=== PATIENT | female | born 1985 | race Caucasian/White ===

== ENCOUNTER 2017-03-30 11:18 | Inpatient (IN) | payer BC ==
[2017-03-30] MEDS ORDERED: Zolpidem 5 MG Tab PO PRN (11:44)
[2017-03-30] MEDS ORDERED: Sodium Chloride 0.9% 10 ML Syringe FLUSH PRN (11:44)
[2017-03-30] MEDS ORDERED: Lactated Ringers 1,000 ML IV SCH (11:45)
[2017-03-30] MEDS ORDERED: Ondansetron 4 MG/2 ML SDV IVPUSH PRN (11:46)
[2017-03-30] MEDS ORDERED: Oxytocin/Lactated Ringers 10 UNIT/1,000 ML BAG IV SCH (12:00)
[2017-03-30] MEDS: Misoprostol 25 MCG (1/4 of 100 MCG) Tab VAG PRN ×3 (12:18→20:15)
--- NOTE | 2017-03-30 12:37 | PCM.LDHP ---
L&D History of Present Illness - General Date of Service: 03/30/17 Admit Problem/Dx: Admission Diagnosis/Problem Admission Diagnosis/Problem Source of Information: Patient History Limitations: Reports: No Limitations - History of Present Illness Introduction:: Patient is a 31-year-old at 39-0/7 weeks gestation who presents for induction of labor today due to intermittently elevated blood pressures. ' s is notable for a history of bipolar disorder, anxiety, and von Willebrand's disease - type I. Patient's course has been relatively uncomplicated. In the last few weeks has had upper limit of normal blood pressures at appointments. This last weekend had a few mild range blood pressures on L&D evaluation, but normal testing. Today she presented to clinic still having complaints of intermittent headaches, and another upper limit of normal blood pressure. He was ultimately felt best to move forward with induction. She is otherwise getting good movement. Having some intermittent contractions, but nothing patterned. - Related Data Allergies/Adverse Reactions: Allergies Allergy/AdvReac Type Severity Reaction Status Date / Time amoxicillin [Amoxicillin] Allergy Itching Verified 03/22/17 11:55 aspirin AdvReac Bleeding Verified 03/22/17 11:55 Home Medications: Home Meds LORazepam [Ativan] 0.5 mg PO DAILY PRN 01/10/14 [History] Desmopressin [Stimate 0.15% Nasal [place]] 1 spray NASBOTH ASDIRECTED PRN [History] ARIPiprazole [Abilify] 5 mg PO DAILY 01/18/16 [History] Citalopram Hydrobromide [Celexa] 20 mg PO DAILY 01/18/16 [History] OXcarbazepine [Trileptal] 300 mg PO DAILY 01/18/16 [History] Past Medical History HEENT History: Reports: Impaired Vision Other HEENT History: wears contacts Gastrointestinal History: Reports: GERD, Hemorrhoids [employer] History: Reports: : 1 Para: 0 LMP (Approximate): Musculoskeletal History: Reports: Back Pain, Chronic, Other (See Below) Other Musculoskeletal History: herniated discs Neurological History: Reports: Migraines Psychiatric History: Reports: Anxiety, Bipolar, Depression Hematologic History: Reports: Other (See Below) Other Hematologic History: Von Willebrand disease - Past Surgical History HEENT Surgical History: Reports: Tonsillectomy, Other (See Below) Other HEENT Surgeries/Procedures: tooth extraction GI Surgical History: Reports: Appendectomy, Cholecystectomy, Other (See Below) ( hemorrhoidectomy) Female Surgical History: Reports: Cystectomy, D&C, LEEP Social & Family History - Family History Family Medical History: Noncontributory - Tobacco Use Smoking Status *Q: Never Smoker Second Hand Smoke Exposure: No - Caffeine Use Caffeine Use: Reports: Coffee, Soda - Alcohol Use Alcohol Use History: No Days Per Week of Alcohol Use: 0 - Recreational Drug Use Recreational Drug Use: No - Living Situation & Occupation Living situation: Reports: with Significant Other Occupation: Employed H&P Review of Systems - Review of Systems: Review Of Systems: See Below General: Reports: No Symptoms Pulmonary: Reports: No Symptoms Cardiovascular: Reports: No Symptoms Gastrointestinal: Reports: No Symptoms Genitourinary: Reports: No Symptoms Musculoskeletal: Reports: Back Pain Psychiatric: Reports: Anxiety Neurological: Reports: Headache L&D Exam - Exam Exam: See Below - Vital Signs Vital Signs: Last Vital Signs Temp 36.7 C 03/30/17 11:34 Pulse 84 03/30/17 11:34 Resp 18 03/30/17 11:34 BP 122/66 03/30/17 11:34 Pulse Ox Weight: 83.642 kg - OB Specific Contraction Intensity: Irritability Movement: Active Heart Tones: Present Heart Tones per Min: 135 Heart Rate (FHR) Variability: Moderate (6-25 bmp) Presentation: Vertex - Domínguez Score Domínguez Score Cervix Position: Midposition Domínguez Score Consistency: Medium Domínguez Score Effacement: 51-70% Domínguez Score Dilation: 1-2 cm Domínguez Score 's Station: -2 Domínguez Score Total: 6 - Exam General: Alert, Oriented, Cooperative Lungs: Clear to Auscultation, Normal Respiratory Effort Cardiovascular: Regular Rate, Regular Rhythm GI/Abdominal Exam: Soft, Non-Tender Genitourinary: Normal external exam Extremities: Normal Inspection Skin: Warm, Dry, Intact - Patient Data Lab Results Last 24 hrs: Laboratory Results - last 24 hr 03/30/17 Range/Units 12:16 WBC 9.16 (3.98-10.04) K/mm3 RBC 3.40 L (3.98-5.22) M/mm3 Hgb 10.7 L (11.2-15.7) gm/L Hct 31.6 L (34.1-44.9) % MCV 92.9 (79.4-94.8) fl MCH 31.5 (25.6-32.2) pg MCHC 33.9 (32.2-35.5) g/dl RDW Std Deviation 41.6 (36.4-46.3) fL Plt Count 191 (182-369) K/mm3 MPV 12.4 H (9.4-12.3) fl Result Diagrams: 03/30/17 12:16 - Problem List (1) 39 weeks gestation of SNOMED Code(s): 31775219 ICD Code: Z3A.39 - 39 WEEKS GESTATION OF Status: Acute Current Visit: Yes (2) Gestational hypertension SNOMED Code(s): 15580322 ICD Code: O13.9 - GESTATIONAL HTN W/O SIGNIFICANT PROTEINURIA, UNSP TRIMESTER Status: Acute Current Visit: Yes Qualifiers: Trimester: third trimester Qualified Code(s): O13.3 - Gestational [ -induced] hypertension without significant proteinuria, third trimester (3) Von Willebrands disease SNOMED Code(s): 175236782 ICD Code: D68.0 - VON WILLEBRAND'S DISEASE Status: Acute Current Visit: No Problem List Initiated/Reviewed/Updated: Yes Orders Last 24hrs: Active Orders 24 hr Category Date Time Status Communication Order [RC] ASDIRECTED Care 03/30/17 11:44 Active Communication Order [RC] ASDIRECTED Care 03/30/17 11:44 Active Communication Order [RC] ASDIRECTED Care 03/30/17 11:46 Active Heart Tones [RC] ASDIRECTED Care 03/30/17 11:46 Active Monitoring [RC] INTERMITTENT Care 03/30/17 11:44 Active Notify Provider [RC] ASDIRECTED Care 03/30/17 11:44 Active Notify Provider [RC] PRN Care 03/30/17 11:46 Active Peripheral IV Care [RC] . DIRECTED Care 03/30/17 11:44 Active Vaginal Exam [RC] ASDIRECTED Care 03/30/17 11:44 Active Vital Signs [RC] ASDIRECTED Care 03/30/17 11:44 Active Regular Diet [DIET] Diet 03/30/17 Lunch Active ALANINE AMINOTRANSFERASE,ALT [CHEM] Routine Lab 03/30/17 11:46 Ordered ASPARTATE AMNIOTRANSFERASE,AST [CHEM] Routine Lab 03/30/17 11:46 Ordered CREATININE W/GFR [CHEM] Routine Lab 03/30/17 11:46 Ordered FACTOR 8 [REF] Routine Lab 03/30/17 11:46 Ordered TYPE AND SCREEN [BBK] Routine Lab 03/30/17 11:46 Ordered UA W/O MICROSCOPIC [URIN] Routine Lab 03/30/17 11:44 Uncollected VON WILLEBRAND FACTOR ACTIVITY Routine Lab 03/30/17 11:46 Ordered VON WILLEBRAND PANEL [REF] Routine Lab 03/30/17 11:46 Ordered Lactated Ringers [Ringers, Lactated] 1,000 ml Med 03/30/17 11:45 Active IV ASDIRECTED Misoprostol [Cytotec] Med 03/30/17 11:44 Active 25 mcg VAG Q4H PRN Nalbuphine [Nubain] Med 03/30/17 11:46 Active 10 mg IVPUSH Q2H PRN Ondansetron [Zofran] Med 03/30/17 11:46 Active 4 mg IVPUSH Q4H PRN Oxytocin/Lactated Ringers [Pitocin in LR 10 Units/1,000 Med 03/30/17 12:00 Active ML] 10 unit in 1,000 ml IV .CONTINUOUS Sodium Chloride 0.9% [Saline Flush] Med 03/30/17 11:44 Active 10 ml FLUSH ASDIRECTED PRN Zolpidem [Ambien] Med 03/30/17 11:44 Active 5 mg PO BEDTIME PRN Electronic Heart Tones Ext w TOCO [WOMSER] Oth 03/30/17 11:46 Ordered Routine Electronic Heart Tones Internal [WOMSER] Per Unit Oth 03/30/17 11:46 Ordered Routine Peripheral IV Insertion Adult [OM.PC] Routine Oth 03/30/17 11:44 Ordered Resuscitation Status Routine Resus Stat 03/30/17 11:46 Ordered Medication Orders Lactated Ringer's (Ringers, Lactated) 1,000 mls @ 40 mls/hr IV ASDIRECTED SHERI Oxytocin/Lactated Ringer's (Pitocin In Lr 10 Units/1,000 Ml) 10 unit in 1,000 mls @ 500 mls/hr IV .CONTINUOUS SHERI Misoprostol (Cytotec) 25 mcg VAG Q4H PRN PRN Reason: cervical ripening Stop: 03/30/17 19:45 Last Admin: 03/30/17 12:18 Dose: 25 mcg Nalbuphine HCl (Nubain) 10 mg IVPUSH Q2H PRN PRN Reason: Pain (moderate 4-6) Ondansetron HCl (Zofran) 4 mg IVPUSH Q4H PRN PRN Reason: Nausea/Vomiting Sodium Chloride (Saline Flush) 10 ml FLUSH ASDIRECTED PRN PRN Reason: Keep Vein Open Zolpidem Tartrate (Ambien) 5 mg PO BEDTIME PRN PRN Reason: Insomnia Assessment/Plan Comment:: 31-year-old at 39-0/7 weeks gestation who presents today for induction of labor given concerns of gestational hypertension * CBC, type and screen, AST, ALT, creatinine, UA for initial evaluation * We'll also assess von Willebrand factor activity and factor VIII level on admission * Plan for Cytotec with eventual Pitocin and AROM as indicated * Will monitor BP's closely * GBS negative, no need for antibiotics * Have discussed again with anesthesia and they feel that she is a candidate for regional anesthesia given normal von Willebrand factor activity and factor VIII levels drawn 03/04 at [facility] * Anticipate
[2017-03-30] MEDS ORDERED: Ondansetron 4 MG/2 ML SDV ONE (15:35)
[2017-03-30] MEDS ORDERED: Lactated Ringers 0 ML ONE (15:35)
[2017-03-30] MEDS ORDERED: ceFAZolin 1 GM Vial ONE (15:35)
[2017-03-30] MEDS ORDERED: Oxytocin 10 Units/1 ML SDV ONE (15:35)
[2017-03-30] MEDS ORDERED: Ketorolac 30 MG/ML SDV ONE (15:35)
[2017-03-30] MEDS ORDERED: Morphine PF 10 MG/10 ML SDV ONE (15:35)
[2017-03-30] MEDS ORDERED: Phenylephrine 1% 10 MG/ML SDV ONE (15:35)
[2017-03-30] MEDS: Acetaminophen 325 MG Tab PO PRN (17:18)
--- NOTE | 2017-03-30 20:32 | PCM.PNLD ---
Labor Progress Note - VS & Meds Vital Signs: Last Vital Signs Temp 36.7 C 03/30/17 11:34 Pulse 84 03/30/17 11:34 Resp 18 03/30/17 11:34 BP 122/66 03/30/17 11:34 Pulse Ox Active Medications: Current Medications Acetaminophen (Tylenol) 650 mg PO Q6H PRN PRN Reason: headahce Last Admin: 03/30/17 17:18 Dose: 650 mg Lactated Ringer's (Ringers, Lactated) 1,000 mls @ 40 mls/hr IV ASDIRECTED SHERI Last Infusion: 03/30/17 20:10 Dose: 0 mls/hr Oxytocin/Lactated Ringer's (Pitocin In Lr 10 Units/1,000 Ml) 10 unit in 1,000 mls @ 500 mls/hr IV .CONTINUOUS HSERI Nalbuphine HCl (Nubain) 10 mg IVPUSH Q2H PRN PRN Reason: Pain (moderate 4-6) Ondansetron HCl (Zofran) 4 mg IVPUSH Q4H PRN PRN Reason: Nausea/Vomiting Sodium Chloride (Saline Flush) 10 ml FLUSH ASDIRECTED PRN PRN Reason: Keep Vein Open Zolpidem Tartrate (Ambien) 5 mg PO BEDTIME PRN PRN Reason: Insomnia Discontinued Medications Cefazolin Sodium (Ancef) Confirm Administered Dose 2 gm .ROUTE .STK-MED ONE Stop: 03/30/17 15:36 Lactated Ringer's (Ringers, Lactated) Confirm Administered Dose 2,000 mls @ as directed .ROUTE .STK-MED ONE Stop: 03/30/17 15:36 Ketorolac Tromethamine (Toradol) Confirm Administered Dose 30 mg .ROUTE .STK- MED ONE Stop: 03/30/17 15:36 Misoprostol (Cytotec) 25 mcg VAG Q4H PRN PRN Reason: cervical ripening Stop: 03/30/17 19:45 Last Admin: 03/30/17 20:15 Dose: 25 mcg Morphine Sulfate (Duramorph Pf) Confirm Administered Dose 10 mg .ROUTE .STK-MED ONE Stop: 03/30/17 15:36 Ondansetron HCl (Zofran) Confirm Administered Dose 4 mg .ROUTE .STK-MED ONE Stop: 03/30/17 15:36 Oxytocin (Pitocin) Confirm Administered Dose 10 unit .ROUTE .STK-MED ONE Stop: 03/30/17 15:36 Phenylephrine HCl (Tito-Synephrine) Confirm Administered Dose 10 mg .ROUTE .STK- MED ONE Stop: 03/30/17 15:36 - Uterine Contractions Uterine Monitoring Mode: External [place] Contraction Intensity: Mild to Moderate - Monitoring Monitor Mode: External Ultrasound Heart Rate (FHR) Baseline: 150 Heart Rate (FHR) Variability: Moderate (6-25 bmp) Accelerations: Present, 15x15 Decelerations: None Strip Review: Category I - Vaginal Exam Dilation (cm): 2 Effacement (Percent): 80 Station: -2 Cervical Position: Midposition - Labor Progress (Free Text) Labor Progress: Patient s/p 2 doses of cytotec. Feeling more uncomfortable. Have placed 3rd cytotec with fu bulb. After completion of this dose will move on to pitocin. Discussed methods of pain control. Will start with nubain and then move on to epidural as needed. Will watch fluid intake closely if epidural desired.
[2017-03-30] MEDS: Nalbuphine 20 MG/1 ML Amp IVPUSH PRN (22:21)
[2017-03-31] MEDS ORDERED: Oxytocin/Lactated Ringers 10 UNIT/1,000 ML BAG IV SCH (02:30)
[2017-03-31] MEDS: Acetaminophen 325 MG Tab PO PRN ×2 (03:13→19:04)
[2017-03-31] MEDS ORDERED: ePHEDrine 50 MG/ML SDV IVPUSH PRN (04:38)
[2017-03-31] MEDS ORDERED: fentaNYL 100 MCG/2 ML SDV EPIDUR PRN (04:38)
[2017-03-31] MEDS ORDERED: Ondansetron 4 MG/2 ML SDV IVPUSH PRN (04:38)
[2017-03-31] MEDS ORDERED: Bupivacaine/fentaNYL/NS 100 ML Bag EPIDUR SCH (04:45)
--- NOTE | 2017-03-31 05:46 | PCM.PREANE ---
Preanesthetic Assessment - Anesthesia/Transfusion/Family Hx Anesthesia History: Prior Anesthesia Without Reaction Family History of Anesthesia Reaction: No Transfusion History: No Prior Transfusion(s) Intubation History: Unknown - Review of Systems General: No Symptoms Pulmonary: No Symptoms Cardiovascular: Lightheadedness (with a panic attack) Gastrointestinal: No Symptoms (GERD) Neurological: Headache Other: Reports: None (Bipolar afffective disorder noted.), Easy Bleeding ( History of Von Willebrand disease type 1), Easy Bruising, Depression, Anxiety - Physical Assessment NPO Status Date: 03/30/17 NPO Status Time: 23:30 Pulse: 84 O2 Sat by Pulse Oximetry: 99 Respiratory Rate: 18 Blood Pressure: 122/66 Temperature: 36.7 C Vital Signs: Last Vital Signs Temp 36.7 C 03/30/17 11:34 Pulse 84 03/30/17 11:34 Resp 18 03/30/17 11:34 BP 122/66 03/30/17 11:34 Pulse Ox Height: 1.65 m Weight: 83.642 kg ASA Class: 2 Mental Status: Alert & Oriented x3 Airway Class: Mallampati = 2 Dentition: Reports: Normal Dentition, Caries Thyro-Mental Finger Breadths: 3 Mouth Opening Finger Breadths: 3 ROM/Head Extension: Full Lungs: Clear to Auscultation, Normal Respiratory Effort Cardiovascular: Regular Rate, Regular Rhythm, No Murmurs - Lab Values: Laboratory Last Values WBC 9.16 K/mm3 (3.98-10.04) 03/30/17 12:16 RBC 3.40 M/mm3 (3.98-5.22) L 03/30/17 12:16 Hgb 10.7 gm/L (11.2-15.7) L 03/30/17 12:16 Hct 31.6 % (34.1-44.9) L 03/30/17 12:16 MCV 92.9 fl (79.4-94.8) 03/30/17 12:16 MCH 31.5 pg (25.6-32.2) 03/30/17 12:16 MCHC 33.9 g/dl (32.2-35.5) 03/30/17 12:16 RDW Std Deviation 41.6 fL (36.4-46.3) 03/30/17 12:16 Plt Count 191 K/mm3 (182-369) 03/30/17 12:16 MPV 12.4 fl (9.4-12.3) H 03/30/17 12:16 Sodium 137 mEq/L (136-145) 03/30/17 12:16 Potassium 3.7 mEq/L (3.5-5.1) 03/30/17 12:16 Chloride 105 mEq/L (98-107) 03/30/17 12:16 Carbon Dioxide 21 mEq/L (21-32) 03/30/17 12:16 Anion Gap 14.7 (5-15) 03/30/17 12:16 Creatinine 0.9 mg/dL (0.55-1.02) 03/30/17 12:16 Est Cr Clr Drug Dosing 82.25 mL/min 03/30/17 12:16 Estimated GFR (MDRD) > 60 mL/min (>60) 03/30/17 12:16 AST 23 U/L (15-37) 03/30/17 12:16 ALT 19 U/L (14-59) 03/30/17 12:16 Urine Color Yellow (Yellow) 03/30/17 13:47 Urine Appearance Slt cloudy (Clear) H 03/30/17 13:47 Urine pH 7.0 (5.0-8.0) 03/30/17 13:47 Ur Specific [place] 1.020 (1.005-1.030) 03/30/17 13:47 Urine Protein Negative (Negative) 03/30/17 13:47 Urine Glucose (UA) Negative (Negative) 03/30/17 13:47 Urine Ketones Negative (Negative) 03/30/17 13:47 Urine Occult Blood Negative (Negative) 03/30/17 13:47 Urine Nitrite Negative (Negative) 03/30/17 13:47 Urine Bilirubin Negative (Negative) 03/30/17 13:47 Urine Urobilinogen 0.2 (0.2-1.0) 03/30/17 13:47 Ur Leukocyte Esterase Negative (Negative) 03/30/17 13:47 Blood Type O POSITIVE 03/30/17 12:10 Gel Antibody Screen Negative 03/30/17 12:10 Above lab values reviewed and noted. 03/04/2017: VWB antigen = 89 - Allergies Allergies/Adverse Reactions: Allergies Allergy/AdvReac Type Severity Reaction Status Date / Time amoxicillin [Amoxicillin] Allergy Itching Verified 03/30/17 14:26 aspirin AdvReac Bleeding Verified 03/30/17 14:26 - Anesthesia Plan Pre-Op Medication Ordered: None - Acknowledgements Anesthesia Type Planned: Epidural Pt an Appropriate Candidate for the Planned Anesthesia: Yes Alternatives and Risks of Anesthesia Discussed w Pt/Guardian: Yes Pt/Guardian Understands and Agrees with Anesthesia Plan: Yes PreAnesthesia Questionnaire HEENT History: Reports: Impaired Vision Other HEENT History: wears contacts Cardiovascular History: Reports: Other (See Below) Gastrointestinal History: Reports: GERD, Hemorrhoids PRIMARY CARE NURSE History: Reports: Other OB/BYN History: cone biopsy with LEEP Musculoskeletal History: Reports: Back Pain, Chronic, Other (See Below) Other Musculoskeletal History: herniated discs Neurological History: Reports: Migraines Psychiatric History: Reports: Anxiety, Bipolar, Depression Hematologic History: Reports: Other (See Below) Other Hematologic History: Von Willebrand disease - Infectious Disease History Infectious Disease History: Reports: Chicken Pox - Past Surgical History HEENT Surgical History: Reports: Tonsillectomy, Other (See Below) Other HEENT Surgeries/Procedures: tooth extraction GI Surgical History: Reports: Appendectomy, Cholecystectomy, Other (See Below) ( hemorrhoidectomy) Female Surgical History: Reports: Cystectomy, D&C, LEEP - SUBSTANCE USE Smoking Status *Q: Never Smoker Second Hand Smoke Exposure: No Days Per Week of Alcohol Use: 0 Recreational Drug Use History: No - HOME MEDS Home Medications: Home Meds Desmopressin [Stimate 0.15% Nasal [place]] 1 spray NASBOTH ASDIRECTED PRN [History] Citalopram Hydrobromide [Celexa] 20 mg PO DAILY 01/18/16 [History] Calcium Carbonate [Tums] 500 mg PO Q2HR 03/30/17 [History] Cyclobenzaprine [Flexeril] 5 mg PO DAILY 03/30/17 [History] - CURRENT (IN HOUSE) MEDS Current Meds: Current Medications Acetaminophen (Tylenol) 650 mg PO Q6H PRN PRN Reason: headahce Last Admin: 03/31/17 03:13 Dose: 650 mg Ephedrine Sulfate (Ephedrine Sulfate) 5 mg IVPUSH ASDIRECTED PRN PRN Reason: Hypotension Fentanyl (Sublimaze) 100 mcg EPIDUR Q3H PRN PRN Reason: Pain Fentanyl/Bupivacaine HCl (Fentanyl/Bupivacaine/Ns 2 Mcg-0.125% 100 Ml) 100 ml EPIDUR ASDIRECTED SHERI Lactated Ringer's (Ringers, Lactated) 1,000 mls @ 40 mls/hr IV ASDIRECTED SHERI Last Infusion: 03/31/17 02:41 Dose: 5 mls/hr Oxytocin/Lactated Ringer's (Pitocin In Lr 10 Units/1,000 Ml) 10 unit in 1,000 mls @ 500 mls/hr IV .CONTINUOUS SHERI Oxytocin/Lactated Ringer's (Pitocin In Lr 10 Units/1,000 Ml) 10 unit in 1,000 mls @ 12 mls/hr IV TITRATE SHERI; 2 MUNITS/MIN PRN Reason: Protocol Last Titration: 03/31/17 05:33 Dose: 6 munits/min, 36 mls/hr Nalbuphine HCl (Nubain) 10 mg IVPUSH Q2H PRN PRN Reason: Pain (moderate 4-6) Last Admin: 03/30/17 22:21 Dose: 10 mg Ondansetron HCl (Zofran) 4 mg IVPUSH Q4H PRN PRN Reason: Nausea/Vomiting Ondansetron HCl (Zofran) 4 mg IVPUSH ONETIME PRN PRN Reason: Nausea/Vomiting Sodium Chloride (Saline Flush) 10 ml FLUSH ASDIRECTED PRN PRN Reason: Keep Vein Open Zolpidem Tartrate (Ambien) 5 mg PO BEDTIME PRN PRN Reason: Insomnia Discontinued Medications Cefazolin Sodium (Ancef) Confirm Administered Dose 2 gm .ROUTE .STK-MED ONE Stop: 03/30/17 15:36 Lactated Ringer's (Ringers, Lactated) Confirm Administered Dose 2,000 mls @ as directed .ROUTE .STK-MED ONE Stop: 03/30/17 15:36 Ketorolac Tromethamine (Toradol) Confirm Administered Dose 30 mg .ROUTE .STK- MED ONE Stop: 03/30/17 15:36 Misoprostol (Cytotec) 25 mcg VAG Q4H PRN PRN Reason: cervical ripening Stop: 03/30/17 19:45 Last Admin: 03/30/17 20:15 Dose: 25 mcg Morphine Sulfate (Duramorph Pf) Confirm Administered Dose 10 mg .ROUTE .STK-MED ONE Stop: 03/30/17 15:36 Ondansetron HCl (Zofran) Confirm Administered Dose 4 mg .ROUTE .STK-MED ONE Stop: 03/30/17 15:36 Oxytocin (Pitocin) Confirm Administered Dose 10 unit .ROUTE .STK-MED ONE Stop: 03/30/17 15:36 Phenylephrine HCl (Tito-Synephrine) Confirm Administered Dose 10 mg .ROUTE .STK- MED ONE Stop: 03/30/17 15:36
--- NOTE | 2017-03-31 07:19 | PCM.PNLD ---
Labor Progress Note - VS & Meds Vital Signs: Last Vital Signs Temp 36.7 C 03/31/17 06:05 Pulse 84 03/31/17 06:05 Resp 18 03/31/17 06:05 BP 122/66 03/31/17 06:05 Pulse Ox 99 03/31/17 06:05 Active Medications: Current Medications Acetaminophen (Tylenol) 650 mg PO Q6H PRN PRN Reason: headahce Last Admin: 03/31/17 03:13 Dose: 650 mg Ephedrine Sulfate (Ephedrine Sulfate) 5 mg IVPUSH ASDIRECTED PRN PRN Reason: Hypotension Fentanyl (Sublimaze) 100 mcg EPIDUR Q3H PRN PRN Reason: Pain Fentanyl/Bupivacaine HCl (Fentanyl/Bupivacaine/Ns 2 Mcg-0.125% 100 Ml) 100 ml EPIDUR ASDIRECTED SHERI Lactated Ringer's (Ringers, Lactated) 1,000 mls @ 40 mls/hr IV ASDIRECTED SHERI Last Infusion: 03/31/17 02:41 Dose: 5 mls/hr Oxytocin/Lactated Ringer's (Pitocin In Lr 10 Units/1,000 Ml) 10 unit in 1,000 mls @ 500 mls/hr IV .CONTINUOUS SHERI Oxytocin/Lactated Ringer's (Pitocin In Lr 10 Units/1,000 Ml) 10 unit in 1,000 mls @ 12 mls/hr IV TITRATE SHERI; 2 MUNITS/MIN PRN Reason: Protocol Last Titration: 03/31/17 06:20 Dose: 7 munits/min, 42 mls/hr Nalbuphine HCl (Nubain) 10 mg IVPUSH Q2H PRN PRN Reason: Pain (moderate 4-6) Last Admin: 03/30/17 22:21 Dose: 10 mg Ondansetron HCl (Zofran) 4 mg IVPUSH Q4H PRN PRN Reason: Nausea/Vomiting Ondansetron HCl (Zofran) 4 mg IVPUSH ONETIME PRN PRN Reason: Nausea/Vomiting Sodium Chloride (Saline Flush) 10 ml FLUSH ASDIRECTED PRN PRN Reason: Keep Vein Open Zolpidem Tartrate (Ambien) 5 mg PO BEDTIME PRN PRN Reason: Insomnia Discontinued Medications Cefazolin Sodium (Ancef) Confirm Administered Dose 2 gm .ROUTE .STK-MED ONE Stop: 03/30/17 15:36 Lactated Ringer's (Ringers, Lactated) Confirm Administered Dose 2,000 mls @ as directed .ROUTE .STK-MED ONE Stop: 03/30/17 15:36 Ketorolac Tromethamine (Toradol) Confirm Administered Dose 30 mg .ROUTE .STK- MED ONE Stop: 03/30/17 15:36 Misoprostol (Cytotec) 25 mcg VAG Q4H PRN PRN Reason: cervical ripening Stop: 03/30/17 19:45 Last Admin: 03/30/17 20:15 Dose: 25 mcg Morphine Sulfate (Duramorph Pf) Confirm Administered Dose 10 mg .ROUTE .STK-MED ONE Stop: 03/30/17 15:36 Ondansetron HCl (Zofran) Confirm Administered Dose 4 mg .ROUTE .STK-MED ONE Stop: 03/30/17 15:36 Oxytocin (Pitocin) Confirm Administered Dose 10 unit .ROUTE .STK-MED ONE Stop: 03/30/17 15:36 Phenylephrine HCl (Tito-Synephrine) Confirm Administered Dose 10 mg .ROUTE .STK- MED ONE Stop: 03/30/17 15:36 - Uterine Contractions Uterine Monitoring Mode: External [place] Contraction Intensity: Mild to Moderate - Monitoring Monitor Mode: External Ultrasound Heart Rate (FHR) Baseline: 135 Heart Rate (FHR) Variability: Moderate (6-25 bmp) Accelerations: Present, 15x15 Decelerations: None Strip Review: Category I - Vaginal Exam Dilation (cm): 3-4 Effacement (Percent): 80 Station: -2 Cervical Position: Midposition - Labor Progress (Free Text) Labor Progress: Doing well. Dexter bulb out around 0500. Has been on pitocin since 0230. Continue per protocol. BPs mild range. Asymptomatic currently
[2017-03-31] MEDS: Nalbuphine 20 MG/1 ML Amp IVPUSH PRN (07:34)
[2017-03-31] MEDS ORDERED: Misoprostol 200 MCG Tab ONE (13:52)
[2017-03-31] MEDS ORDERED: Carboprost Tromethamine 250 MCG/1 ML Amp IM ONE (14:11)
[2017-03-31] MEDS ORDERED: Misoprostol 200 MCG Tab PO ONE (14:15)
--- NOTE | 2017-03-31 14:33 | PCM.DEL ---
L & D Note - General Info Date of Service: 03/31/17 - Delivery Note Labor: Induced by ARM, Induced by Oxytocin Cervical Ripening Method: Misoprostil Delivery Outcome: Livebirth Infant Delivery Method: Spontaneous Vaginal Delivery Infant Delivery Mode: Spontaneous Presentation: Left Occiput Anterior (HAN) Nuchal Cord: None Anesthesia Type: Epidural Amniotic Fluid Description: Clear Episiotomy Type: None Laceration: 2nd Degree, Perineal Suture type: Vicryl Suture size: 2-0 Placenta: Intact, Spontaneous Cord: 3 Vessels Estimated Blood Loss: 750 Resuscitation Needed: Yes Score 1 min: 8 Score 5 min: 9 Post Delivery Events: Hemorrhage, Shoulder Dystocia Delivery Comments (Free Text/Narrative):: Patient found to be complete and began pushing. With maternal pushing there was prolonged raising suspicion for impending shoulder dystocia. head delivered from NETO presentation. Gentle downward traction did not facilitate delivery and head pressed to perineum. Nursing placed patient in deeper McRobert's and suprapubic pressure applied. With again gentle downward traction shoulder and body then delivered. Total time ~30 seconds. Infant placed on maternal abdomen. Cord clamped and cut. Cord blood obtained. Placenta allowed time to separate and expelled. Patient with continued moderate bleeding during this time. Exam showed atony of the lower uterine segment. Massage done and clot swept out of this portion of the uterus on several occasions. Patient given 600 mcg of buccal cytotec and 250 mcg of hemabate. With these interventions and continued massage bleeding did lessen. Total EBL 750 cc. Inspection of the perineum showed a 2nd degree laceration which was repaired with a 2-0 vicryl in the typical fashion - Patient Data Vitals - Most Recent: Last Vital Signs Temp 36.7 C 03/31/17 06:05 Pulse 84 03/31/17 06:05 Resp 18 03/31/17 06:05 BP 122/66 03/31/17 06:05 Pulse Ox 99 03/31/17 06:05 Weight - Most Recent: 83.642 kg I&O - Last 24 Hours: Intake & Output 03/30/17 03/31/17 03/31/17 22:59 06:59 14:59 Intake Total 1040 500 Balance 1040 500 Lab Results Last 24 Hours: Laboratory Results - last 24 hr 03/30/17 03/30/17 03/30/17 Range/Units 12:10 12:10 12:16 Factor VIII 209 H (55-145) % Sodium 137 (136-145) mEq/L Potassium 3.7 (3.5-5.1) mEq/L Chloride 105 (98-107) mEq/L Carbon Dioxide 21 (21-32) mEq/L Anion Gap 14.7 (5-15) Blood Type O POSITIVE Gel Antibody Screen Negative Crossmatch See Detail Med Orders - Current: Current Medications Acetaminophen (Tylenol) 650 mg PO Q6H PRN PRN Reason: headahce Last Admin: 03/31/17 03:13 Dose: 650 mg Ephedrine Sulfate (Ephedrine Sulfate) 5 mg IVPUSH ASDIRECTED PRN PRN Reason: Hypotension Fentanyl (Sublimaze) 100 mcg EPIDUR Q3H PRN PRN Reason: Pain Last Admin: 03/31/17 07:58 Dose: 100 mcg Fentanyl/Bupivacaine HCl (Fentanyl/Bupivacaine/Ns 2 Mcg-0.125% 100 Ml) 100 ml EPIDUR ASDIRECTED SHERI Last Admin: 03/31/17 07:58 Dose: 100 ml Lactated Ringer's (Ringers, Lactated) 1,000 mls @ 40 mls/hr IV ASDIRECTED SHERI Last Infusion: 03/31/17 02:41 Dose: 5 mls/hr Oxytocin/Lactated Ringer's (Pitocin In Lr 10 Units/1,000 Ml) 10 unit in 1,000 mls @ 500 mls/hr IV .CONTINUOUS SHERI Oxytocin/Lactated Ringer's (Pitocin In Lr 10 Units/1,000 Ml) 10 unit in 1,000 mls @ 12 mls/hr IV TITRATE SHERI; 2 MUNITS/MIN PRN Reason: Protocol Last Titration: 03/31/17 07:40 Dose: 3 munits/min, 18 mls/hr Nalbuphine HCl (Nubain) 10 mg IVPUSH Q2H PRN PRN Reason: Pain (moderate 4-6) Last Admin: 03/31/17 07:34 Dose: 10 mg Ondansetron HCl (Zofran) 4 mg IVPUSH Q4H PRN PRN Reason: Nausea/Vomiting Last Admin: 03/31/17 09:14 Dose: 4 mg Ondansetron HCl (Zofran) 4 mg IVPUSH ONETIME PRN PRN Reason: Nausea/Vomiting Sodium Chloride (Saline Flush) 10 ml FLUSH ASDIRECTED PRN PRN Reason: Keep Vein Open Zolpidem Tartrate (Ambien) 5 mg PO BEDTIME PRN PRN Reason: Insomnia Discontinued Medications Carboprost Tromethamine (Hemabate Ds) 250 mcg IM ONETIME ONE Stop: 03/31/17 14:12 Last Admin: 03/31/17 14:00 Dose: 250 mcg Cefazolin Sodium (Ancef) Confirm Administered Dose 2 gm .ROUTE .STK-MED ONE Stop: 03/30/17 15:36 Lactated Ringer's (Ringers, Lactated) Confirm Administered Dose 2,000 mls @ as directed .ROUTE .STK-MED ONE Stop: 03/30/17 15:36 Ketorolac Tromethamine (Toradol) Confirm Administered Dose 30 mg .ROUTE .STK- MED ONE Stop: 03/30/17 15:36 Misoprostol (Cytotec) 25 mcg VAG Q4H PRN PRN Reason: cervical ripening Stop: 03/30/17 19:45 Last Admin: 03/30/17 20:15 Dose: 25 mcg Misoprostol (Cytotec) Confirm Administered Dose 600 mcg .ROUTE .STK-MED ONE Stop: 03/31/17 13:53 Last Admin: 03/31/17 14:17 Dose: Not Given Misoprostol (Cytotec) 600 mcg PO ONETIME ONE Stop: 03/31/17 14:16 Last Admin: 03/31/17 13:54 Dose: 600 mcg Morphine Sulfate (Duramorph Pf) Confirm Administered Dose 10 mg .ROUTE .STK-MED ONE Stop: 03/30/17 15:36 Ondansetron HCl (Zofran) Confirm Administered Dose 4 mg .ROUTE .STK-MED ONE Stop: 03/30/17 15:36 Oxytocin (Pitocin) Confirm Administered Dose 10 unit .ROUTE .STK-MED ONE Stop: 03/30/17 15:36 Phenylephrine HCl (Tito-Synephrine) Confirm Administered Dose 10 mg .ROUTE .STK- MED ONE Stop: 03/30/17 15:36 - Problem List & Annotations (1) 39 weeks gestation of SNOMED Code(s): 97981502 Code(s): Z3A.39 - 39 WEEKS GESTATION OF Status: Acute Current Visit: Yes (2) Gestational hypertension SNOMED Code(s): 76730536 Code(s): O13.9 - GESTATIONAL HTN W/O SIGNIFICANT PROTEINURIA, UNSP TRIMESTER Status: Acute Current Visit: Yes Qualifiers: Trimester: third trimester Qualified Code(s): O13.3 - Gestational [ -induced] hypertension without significant proteinuria, third trimester (3) Von Willebrands disease SNOMED Code(s): 718756880 Code(s): D68.0 - VON WILLEBRAND'S DISEASE Status: Acute Current Visit: No (4) Shoulder dystocia during labor and delivery, delivered SNOMED Code(s): 81216749 Code(s): O66.0 - OBSTRUCTED LABOR DUE TO SHOULDER DYSTOCIA Status: Acute Current Visit: Yes (5) Vaginal delivery SNOMED Code(s): 988407028 Code(s): O80 - ENCOUNTER FOR FULL-TERM UNCOMPLICATED DELIVERY Status: Acute Current Visit: Yes (6) hemorrhage SNOMED Code(s): 91783530 Code(s): O72.1 - OTHER IMMEDIATE HEMORRHAGE Status: Acute Current Visit: Yes Qualifiers: hemorrhage type: other immediate Qualified Code(s): O72.1 - Other immediate hemorrhage - Problem List Review Problem List Initiated/Reviewed/Updated: Yes - My Orders Last 24 Hours: My Active Orders 03/30/17 17:06 Acetaminophen [Tylenol] 650 mg PO Q6H PRN 03/31/17 02:30 Oxytocin/Lactated Ringers [Pitocin in LR 10 Units/1,000 ML] 10 unit in 1,000 ml IV TITRATE 03/31/17 14:08 RED BLOOD CELLS LP [BBK] Stat 03/31/17 14:10 PLATELETS APH [BBK] Stat 03/31/17 14:26 Patient Status Manage Transfer [TRANSFER] Routine - Assessment Assessment:: 31 y/o G1 now P1001 PPD#0 from at 39 1/7 wks - Plan Plan:: * Routine care * Encourage breast feeding Gestational HTN * Continue to monitor BP's closely PPH secondary to atony * Monitor bleeding closely. Additional uterotonics if needed VWD - Type 1 * Repeat panel in 4-6 hours and again day of discharge to aid in Hematology follow up
[2017-03-31] MEDS ORDERED: Docusate Sodium 100 MG Cap PO PRN (14:50)
[2017-03-31] MEDS ORDERED: Lanolin 100% Cream 7 GM Tube TOP PRN (14:50)
[2017-03-31] MEDS ORDERED: Witch Hazel Medicated Pads 100/Jar TOP PRN (14:50)
[2017-03-31] MEDS ORDERED: Benzocaine/Menthol 20%-0.5% Spray 56 GM Canister TOP PRN (14:50)
[2017-03-31] MEDS ORDERED: ePHEDrine 50 MG/ML SDV ONE (22:22)
[2017-03-31] MEDS ORDERED: Bupivacaine 0.25% 10 ML SDV ONE (22:22)
[2017-04-01] MEDS: Acetaminophen 325 MG Tab PO PRN ×3 (00:38→20:33)
--- NOTE | 2017-04-01 19:05 | PCM.PNPP ---
- General Info Date of Service: 04/01/17 Functional Status: Reports: Pain Controlled, Tolerating Diet, Ambulating - Review of Systems General: Reports: No Symptoms Pulmonary: Reports: No Symptoms Cardiovascular: Reports: No Symptoms Gastrointestinal: Reports: No Symptoms Genitourinary: Reports: Incontinence (Quite pronounced per patient report ) Musculoskeletal: Reports: No Symptoms Neurological: Reports: No Symptoms - Patient Data Vital Signs - Most Recent: Last Vital Signs Temp 36.7 C 04/01/17 11:59 Pulse 84 04/01/17 11:59 Resp 16 04/01/17 11:59 BP 138/84 04/01/17 11:59 Pulse Ox 99 04/01/17 11:59 Weight - Most Recent: 83.642 kg Lab Results - Last 24 Hours: Laboratory Results - last 24 hr 03/30/17 Range/Units 12:10 Factor VIII 239 H (55-150) % von Willebrand Activity 57 (>40) % von Willebrand Antigen 92 (50-165) % Med Orders - Current: Current Medications Acetaminophen (Tylenol) 650 mg PO Q4H PRN PRN Reason: mild pain or fever Last Admin: 04/01/17 08:11 Dose: 650 mg Benzocaine/Menthol (Dermoplast Pain Relief [place]) 0 gm TOP ASDIRECTED PRN PRN Reason: Perineal Comfort Measure Last Admin: 03/31/17 15:21 Dose: 1 can Docusate Sodium (Colace) 100 mg PO BID PRN PRN Reason: Constipation Emollient Ointment (Lansinoh Hpa) 0 gm TOP ASDIRECTED PRN PRN Reason: Sore Nipples Witch Rekha (Tucks) 1 pad TOP ASDIRECTED PRN PRN Reason: Hemorrhoid pain Last Admin: 03/31/17 15:22 Dose: 1 canister Discontinued Medications Acetaminophen (Tylenol) 650 mg PO Q6H PRN PRN Reason: headahce Last Admin: 03/31/17 03:13 Dose: 650 mg Carboprost Tromethamine (Hemabate Ds) 250 mcg IM ONETIME ONE Stop: 03/31/17 14:12 Last Admin: 03/31/17 14:00 Dose: 250 mcg Cefazolin Sodium (Ancef) Confirm Administered Dose 2 gm .ROUTE .STK-MED ONE Stop: 03/30/17 15:36 Ephedrine Sulfate (Ephedrine Sulfate) 5 mg IVPUSH ASDIRECTED PRN PRN Reason: Hypotension Fentanyl (Sublimaze) 100 mcg EPIDUR Q3H PRN PRN Reason: Pain Last Admin: 03/31/17 07:58 Dose: 100 mcg Fentanyl/Bupivacaine HCl (Fentanyl/Bupivacaine/Ns 2 Mcg-0.125% 100 Ml) 100 ml EPIDUR ASDIRECTED SHERI Last Admin: 03/31/17 07:58 Dose: 100 ml Lactated Ringer's (Ringers, Lactated) 1,000 mls @ 40 mls/hr IV ASDIRECTED SHERI Last Infusion: 03/31/17 02:41 Dose: 5 mls/hr Oxytocin/Lactated Ringer's (Pitocin In Lr 10 Units/1,000 Ml) 10 unit in 1,000 mls @ 500 mls/hr IV .CONTINUOUS SHERI Last Admin: 03/31/17 15:22 Dose: 500 mls/hr Lactated Ringer's (Ringers, Lactated) Confirm Administered Dose 0 mls @ as directed .ROUTE .STK-MED ONE Stop: 03/30/17 15:36 Oxytocin/Lactated Ringer's (Pitocin In Lr 10 Units/1,000 Ml) 10 unit in 1,000 mls @ 12 mls/hr IV TITRATE SHERI; 2 MUNITS/MIN PRN Reason: Protocol Last Titration: 03/31/17 07:40 Dose: 3 munits/min, 18 mls/hr Ketorolac Tromethamine (Toradol) Confirm Administered Dose 30 mg .ROUTE .STK- MED ONE Stop: 03/30/17 15:36 Misoprostol (Cytotec) 25 mcg VAG Q4H PRN PRN Reason: cervical ripening Stop: 03/30/17 19:45 Last Admin: 03/30/17 20:15 Dose: 25 mcg Misoprostol (Cytotec) Confirm Administered Dose 600 mcg .ROUTE .STK-MED ONE Stop: 03/31/17 13:53 Last Admin: 03/31/17 14:17 Dose: Not Given Misoprostol (Cytotec) 600 mcg PO ONETIME ONE Stop: 03/31/17 14:16 Last Admin: 03/31/17 13:54 Dose: 600 mcg Morphine Sulfate (Duramorph Pf) Confirm Administered Dose 10 mg .ROUTE .STK-MED ONE Stop: 03/30/17 15:36 Nalbuphine HCl (Nubain) 10 mg IVPUSH Q2H PRN PRN Reason: Pain (moderate 4-6) Last Admin: 03/31/17 07:34 Dose: 10 mg Ondansetron HCl (Zofran) 4 mg IVPUSH Q4H PRN PRN Reason: Nausea/Vomiting Last Admin: 03/31/17 09:14 Dose: 4 mg Ondansetron HCl (Zofran) Confirm Administered Dose 4 mg .ROUTE .STK-MED ONE Stop: 03/30/17 15:36 Ondansetron HCl (Zofran) 4 mg IVPUSH ONETIME PRN PRN Reason: Nausea/Vomiting Oxytocin (Pitocin) Confirm Administered Dose 10 unit .ROUTE .STK-MED ONE Stop: 03/30/17 15:36 Phenylephrine HCl (Tito-Synephrine) Confirm Administered Dose 10 mg .ROUTE .STK- MED ONE Stop: 03/30/17 15:36 Sodium Chloride (Saline Flush) 10 ml FLUSH ASDIRECTED PRN PRN Reason: Keep Vein Open Zolpidem Tartrate (Ambien) 5 mg PO BEDTIME PRN PRN Reason: Insomnia - Infant Interaction Disposition, : [place] in Room with Family Interaction: Holding Infant Infant Feeding: Attempted ; Nursed Fair/Poor Support Person: - Recovery Exam Fundal Tone: Firm Fundal Level: At Umbilicus Fundal Placement: Midline Lochia Amount: Scant Lochia Color: Rubra/Red Perineum Description: Intact, Minimal Bruising/Swelling Episiotomy/Laceration: Approximated Bladder Status: Voiding Urinary Elimination: Incontinent - Exam General: Alert, Oriented, Cooperative GI/Abdominal Exam: Soft, Non-Tender Extremities: Normal Inspection Skin: Warm, Dry, Intact - Problem List & Annotations (1) 39 weeks gestation of SNOMED Code(s): 68816134 Code(s): Z3A.39 - 39 WEEKS GESTATION OF Status: Acute Current Visit: Yes (2) Gestational hypertension SNOMED Code(s): 07826697 Code(s): O13.9 - GESTATIONAL HTN W/O SIGNIFICANT PROTEINURIA, UNSP TRIMESTER Status: Acute Current Visit: Yes Qualifiers: Trimester: third trimester Qualified Code(s): O13.3 - Gestational [ -induced] hypertension without significant proteinuria, third trimester (3) Von Willebrands disease SNOMED Code(s): 284981616 Code(s): D68.0 - VON WILLEBRAND'S DISEASE Status: Acute Current Visit: No (4) Shoulder dystocia during labor and delivery, delivered SNOMED Code(s): 93381663 Code(s): O66.0 - OBSTRUCTED LABOR DUE TO SHOULDER DYSTOCIA Status: Acute Current Visit: Yes (5) Vaginal delivery SNOMED Code(s): 166767050 Code(s): O80 - ENCOUNTER FOR FULL-TERM UNCOMPLICATED DELIVERY Status: Acute Current Visit: Yes (6) hemorrhage SNOMED Code(s): 24271038 Code(s): O72.1 - OTHER IMMEDIATE HEMORRHAGE Status: Acute Current Visit: Yes Qualifiers: hemorrhage type: other immediate Qualified Code(s): O72.1 - Other immediate hemorrhage - Problem List Review Problem List Initiated/Reviewed/Updated: Yes - My Orders Last 24 Hours: My Active Orders 04/01/17 14:50 Heat Therapy [OM.PC] PRN - Assessment Assessment:: 31 y/o G1 now P1001 PPD#1 from at 39 1/7 wks - Plan Plan:: * Routine care * Encourage breast feeding Gestational HTN * Continue to monitor BP's closely. Have been normal/mild range PPH secondary to atony * Bleeding appropriate overnight VWD - Type 1 * Repeat panel day of discharge to aid in Hematology follow up . Will also have patient use her DDAVP on discharge.
[2017-04-02 02:57] VITALS: BP 131/91
--- NOTE | 2017-04-02 07:14 | PCM.PNPP ---
- General Info Date of Service: 04/02/17 Functional Status: Reports: Pain Controlled, Tolerating Diet, Ambulating, Urinating - Review of Systems General: Reports: No Symptoms Pulmonary: Reports: No Symptoms Cardiovascular: Reports: No Symptoms Gastrointestinal: Reports: No Symptoms Genitourinary: Reports: Incontinence (improving slightly ) Musculoskeletal: Reports: Back Pain - Patient Data Vital Signs - Most Recent: Last Vital Signs Temp 36.4 C 04/02/17 02:09 Pulse 90 04/02/17 02:09 Resp 14 04/02/17 02:09 BP 131/91 H 04/02/17 02:09 Pulse Ox 99 04/02/17 02:09 Weight - Most Recent: 83.642 kg Lab Results - Last 24 Hours: Laboratory Results - last 24 hr 03/30/17 04/02/17 Range/Units 12:10 05:50 WBC 9.91 (3.98-10.04) K/mm3 RBC 2.23 L (3.98-5.22) M/mm3 Hgb 6.9 L* (11.2-15.7) gm/L Hct 21.4 L (34.1-44.9) % MCV 96.0 H (79.4-94.8) fl MCH 30.9 (25.6-32.2) pg MCHC 32.2 (32.2-35.5) g/dl RDW Std Deviation 43.4 (36.4-46.3) fL Plt Count 160 L (182-369) K/mm3 MPV 12.3 (9.4-12.3) fl Factor VIII 239 H (55-150) % von Willebrand Activity 57 (>40) % von Willebrand Antigen 92 (50-165) % Med Orders - Current: Current Medications Acetaminophen (Tylenol) 650 mg PO Q4H PRN PRN Reason: mild pain or fever Last Admin: 04/01/17 20:33 Dose: 650 mg Benzocaine/Menthol (Dermoplast Pain Relief [place]) 0 gm TOP ASDIRECTED PRN PRN Reason: Perineal Comfort Measure Last Admin: 03/31/17 15:21 Dose: 1 can Docusate Sodium (Colace) 100 mg PO BID PRN PRN Reason: Constipation Emollient Ointment (Lansinoh Hpa) 0 gm TOP ASDIRECTED PRN PRN Reason: Sore Nipples Witch Rekha (Tucks) 1 pad TOP ASDIRECTED PRN PRN Reason: Hemorrhoid pain Last Admin: 03/31/17 15:22 Dose: 1 canister Discontinued Medications Acetaminophen (Tylenol) 650 mg PO Q6H PRN PRN Reason: headahce Last Admin: 03/31/17 03:13 Dose: 650 mg Carboprost Tromethamine (Hemabate Ds) 250 mcg IM ONETIME ONE Stop: 03/31/17 14:12 Last Admin: 03/31/17 14:00 Dose: 250 mcg Cefazolin Sodium (Ancef) Confirm Administered Dose 2 gm .ROUTE .STK-MED ONE Stop: 03/30/17 15:36 Ephedrine Sulfate (Ephedrine Sulfate) 5 mg IVPUSH ASDIRECTED PRN PRN Reason: Hypotension Fentanyl (Sublimaze) 100 mcg EPIDUR Q3H PRN PRN Reason: Pain Last Admin: 03/31/17 07:58 Dose: 100 mcg Fentanyl/Bupivacaine HCl (Fentanyl/Bupivacaine/Ns 2 Mcg-0.125% 100 Ml) 100 ml EPIDUR ASDIRECTED SHERI Last Admin: 03/31/17 07:58 Dose: 100 ml Lactated Ringer's (Ringers, Lactated) 1,000 mls @ 40 mls/hr IV ASDIRECTED SHEIR Last Infusion: 03/31/17 02:41 Dose: 5 mls/hr Oxytocin/Lactated Ringer's (Pitocin In Lr 10 Units/1,000 Ml) 10 unit in 1,000 mls @ 500 mls/hr IV .CONTINUOUS SHERI Last Admin: 03/31/17 15:22 Dose: 500 mls/hr Lactated Ringer's (Ringers, Lactated) Confirm Administered Dose 0 mls @ as directed .ROUTE .STK-MED ONE Stop: 03/30/17 15:36 Oxytocin/Lactated Ringer's (Pitocin In Lr 10 Units/1,000 Ml) 10 unit in 1,000 mls @ 12 mls/hr IV TITRATE SHERI; 2 MUNITS/MIN PRN Reason: Protocol Last Titration: 03/31/17 07:40 Dose: 3 munits/min, 18 mls/hr Ketorolac Tromethamine (Toradol) Confirm Administered Dose 30 mg .ROUTE .STK- MED ONE Stop: 03/30/17 15:36 Misoprostol (Cytotec) 25 mcg VAG Q4H PRN PRN Reason: cervical ripening Stop: 03/30/17 19:45 Last Admin: 03/30/17 20:15 Dose: 25 mcg Misoprostol (Cytotec) Confirm Administered Dose 600 mcg .ROUTE .STK-MED ONE Stop: 03/31/17 13:53 Last Admin: 03/31/17 14:17 Dose: Not Given Misoprostol (Cytotec) 600 mcg PO ONETIME ONE Stop: 03/31/17 14:16 Last Admin: 03/31/17 13:54 Dose: 600 mcg Morphine Sulfate (Duramorph Pf) Confirm Administered Dose 10 mg .ROUTE .STK-MED ONE Stop: 03/30/17 15:36 Nalbuphine HCl (Nubain) 10 mg IVPUSH Q2H PRN PRN Reason: Pain (moderate 4-6) Last Admin: 03/31/17 07:34 Dose: 10 mg Ondansetron HCl (Zofran) 4 mg IVPUSH Q4H PRN PRN Reason: Nausea/Vomiting Last Admin: 03/31/17 09:14 Dose: 4 mg Ondansetron HCl (Zofran) Confirm Administered Dose 4 mg .ROUTE .STK-MED ONE Stop: 03/30/17 15:36 Ondansetron HCl (Zofran) 4 mg IVPUSH ONETIME PRN PRN Reason: Nausea/Vomiting Oxytocin (Pitocin) Confirm Administered Dose 10 unit .ROUTE .STK-MED ONE Stop: 03/30/17 15:36 Phenylephrine HCl (Tito-Synephrine) Confirm Administered Dose 10 mg .ROUTE .STK- MED ONE Stop: 03/30/17 15:36 Sodium Chloride (Saline Flush) 10 ml FLUSH ASDIRECTED PRN PRN Reason: Keep Vein Open Zolpidem Tartrate (Ambien) 5 mg PO BEDTIME PRN PRN Reason: Insomnia - Interaction Infant Disposition, : [place] in Room with Family Infant Interaction: Holding Feeding: Attempted ; Nursed Fair/Poor Support Person: - Recovery Exam Fundal Tone: Firm Fundal Level: At Umbilicus Fundal Placement: Midline Lochia Amount: Scant Lochia Color: Rubra/Red Perineum Description: Intact, Minimal Bruising/Swelling Episiotomy/Laceration: Approximated Bladder Status: Voiding Urinary Elimination: Incontinent Other Urinary Elimination, : encouraged voiding q 2hr and kegals once recovered from delivery - Exam General: Alert, Oriented, Cooperative GI/Abdominal Exam: Soft, Non-Tender Extremities: Normal Inspection Skin: Warm, Dry, Intact - Problem List & Annotations (1) 39 weeks gestation of SNOMED Code(s): 95430979 Code(s): Z3A.39 - 39 WEEKS GESTATION OF Status: Acute (2) Gestational hypertension SNOMED Code(s): 63819504 Code(s): O13.9 - GESTATIONAL HTN W/O SIGNIFICANT PROTEINURIA, UNSP TRIMESTER Status: Acute Qualifiers: Trimester: third trimester Qualified Code(s): O13.3 - Gestational [ -induced] hypertension without significant proteinuria, third trimester (3) Von Willebrands disease SNOMED Code(s): 130300755 Code(s): D68.0 - VON WILLEBRAND'S DISEASE Status: Acute (4) Shoulder dystocia during labor and delivery, delivered SNOMED Code(s): 44417677 Code(s): O66.0 - OBSTRUCTED LABOR DUE TO SHOULDER DYSTOCIA Status: Acute (5) Vaginal delivery SNOMED Code(s): 326763558 Code(s): O80 - ENCOUNTER FOR FULL-TERM UNCOMPLICATED DELIVERY Status: Acute (6) hemorrhage SNOMED Code(s): 54654714 Code(s): O72.1 - OTHER IMMEDIATE HEMORRHAGE Status: Acute Qualifiers: hemorrhage type: other immediate Qualified Code(s): O72.1 - Other immediate hemorrhage (7) Acute blood loss anemia SNOMED Code(s): 073816235 Code(s): D62 - ACUTE POSTHEMORRHAGIC ANEMIA Status: Acute - Problem List Review Problem List Initiated/Reviewed/Updated: Yes - My Orders Last 24 Hours: My Active Orders 04/01/17 14:50 Heat Therapy [OM.PC] PRN 04/02/17 05:50 VON WILLEBRAND PANEL [REF] Timed - Assessment Assessment:: 31 y/o G1 now P1001 PPD#2 from at 39 1/7 wks - Plan Plan:: * Routine care * Encourage breast feeding Gestational HTN * BP's mostly normal. Will need BP check in 1-2 weeks. PPH secondary to atony * Hb this AM down to 6.9 from 10.7. Patient states she is tolerating well. Will defer transfusion for now. VWD - Type 1 * Full panel testing back from Day of admission. Still awaiting results from immediate post delivery draw. Also drawn again this AM. Will send these results to Hematology. Rx sent for patient's DDAVP. She will use this today. Follow up with Hematology next week.
--- NOTE | 2017-04-02 07:15 | PCM.DCSUM1 ---
Discharge Summary - Discharge Data Discharge Date: 04/02/17 Discharge Disposition: Home, Self-Care 01 Condition: Good - Discharge Diagnosis/Problem(s) (1) 39 weeks gestation of SNOMED Code(s): 66790205 ICD Code: Z3A.39 - 39 WEEKS GESTATION OF Status: Acute (2) Gestational hypertension SNOMED Code(s): 28745356 ICD Code: O13.9 - GESTATIONAL HTN W/O SIGNIFICANT PROTEINURIA, UNSP TRIMESTER Status: Acute Qualifiers: Trimester: third trimester Qualified Code(s): O13.3 - Gestational [ -induced] hypertension without significant proteinuria, third trimester (3) Von Willebrands disease SNOMED Code(s): 488170792 ICD Code: D68.0 - VON WILLEBRAND'S DISEASE Status: Acute (4) Shoulder dystocia during labor and delivery, delivered SNOMED Code(s): 47212531 ICD Code: O66.0 - OBSTRUCTED LABOR DUE TO SHOULDER DYSTOCIA Status: Acute (5) Vaginal delivery SNOMED Code(s): 334920517 ICD Code: O80 - ENCOUNTER FOR FULL-TERM UNCOMPLICATED DELIVERY Status: Acute (6) hemorrhage SNOMED Code(s): 19278363 ICD Code: O72.1 - OTHER IMMEDIATE HEMORRHAGE Status: Acute Qualifiers: hemorrhage type: other immediate Qualified Code(s): O72.1 - Other immediate hemorrhage (7) Acute blood loss anemia SNOMED Code(s): 136860499 ICD Code: D62 - ACUTE POSTHEMORRHAGIC ANEMIA Status: Acute - Patient Summary/Data Complications: None Consults: None Recommended Follow-up Testing/Procedures: Follow up for BP check with Dr. Hayden in 1 week. Follow up with Dr. Hare in 1 week. Hospital Course: Patient is a 31 y/o at 39 0/7 wks presented for IOL for gestational HTN. This was done with cytotec and eventually pitocin and AROM. She progressed well and underwent a vaginal delivery. Post delivery she did have an immediate hemorrhage secondary to atony. EBL of 750 cc. This was managed with pitocin, hemabate, and cytotec. She did drop her Hb from 10.7 to 6.9, but was tolerating well and so transfusion deferred. She was given an Rx for DDAVP on discharge and instructed to take this same day. She was to follow up with Hematology. - Patient Instructions Diet: Regular Diet as Tolerated Activity: As Tolerated Activity, Other: Pelvic Rest for 6 weeks Driving: May Drive Today Showering/Bathing: May Shower Showering/Bathing, Other: May Bathe Notify Provider of: Fever, Increased Pain, Swelling and Redness, Drainage, Nausea and/or Vomiting - Discharge Plan Home Medications: Home Meds Desmopressin [Stimate 0.15% Nasal [place]] 1 spray NASBOTH ASDIRECTED PRN [History] Citalopram Hydrobromide [Celexa] 20 mg PO DAILY 01/18/16 [History] Docusate Sodium [Colace] 100 mg PO BID PRN #0 cap 04/01/17 [Rx] Patient Handouts: Home Care Instructions for Mom Referrals: Salud Hayden MD [Primary Care Provider] - (5-6 weeks for check ) Bouchra Vivas MD [Ordering Only Provider] - (Week of 04/06-04/10) - Discharge Summary/Plan Comment DC Time >30 min.: No - Patient Data Vitals - Most Recent: Last Vital Signs Temp 36.4 C 04/02/17 02:09 Pulse 90 04/02/17 02:09 Resp 14 04/02/17 02:09 BP 131/91 H 04/02/17 02:09 Pulse Ox 99 04/02/17 02:09 Weight - Most Recent: 83.642 kg Lab Results - Last 24 hrs: Laboratory Results - last 24 hr 03/30/17 04/02/17 Range/Units 12:10 05:50 WBC 9.91 (3.98-10.04) K/mm3 RBC 2.23 L (3.98-5.22) M/mm3 Hgb 6.9 L* (11.2-15.7) gm/L Hct 21.4 L (34.1-44.9) % MCV 96.0 H (79.4-94.8) fl MCH 30.9 (25.6-32.2) pg MCHC 32.2 (32.2-35.5) g/dl RDW Std Deviation 43.4 (36.4-46.3) fL Plt Count 160 L (182-369) K/mm3 MPV 12.3 (9.4-12.3) fl Factor VIII 239 H (55-150) % von Willebrand Activity 57 (>40) % von Willebrand Antigen 92 (50-165) % Med Orders - Current: Current Medications Acetaminophen (Tylenol) 650 mg PO Q4H PRN PRN Reason: mild pain or fever Last Admin: 04/01/17 20:33 Dose: 650 mg Benzocaine/Menthol (Dermoplast Pain Relief [place]) 0 gm TOP ASDIRECTED PRN PRN Reason: Perineal Comfort Measure Last Admin: 03/31/17 15:21 Dose: 1 can Docusate Sodium (Colace) 100 mg PO BID PRN PRN Reason: Constipation Emollient Ointment (Lansinoh Hpa) 0 gm TOP ASDIRECTED PRN PRN Reason: Sore Nipples Witch Rekha (Tucks) 1 pad TOP ASDIRECTED PRN PRN Reason: Hemorrhoid pain Last Admin: 03/31/17 15:22 Dose: 1 canister Discontinued Medications Acetaminophen (Tylenol) 650 mg PO Q6H PRN PRN Reason: headahce Last Admin: 03/31/17 03:13 Dose: 650 mg Carboprost Tromethamine (Hemabate Ds) 250 mcg IM ONETIME ONE Stop: 03/31/17 14:12 Last Admin: 03/31/17 14:00 Dose: 250 mcg Cefazolin Sodium (Ancef) Confirm Administered Dose 2 gm .ROUTE .STK-MED ONE Stop: 03/30/17 15:36 Ephedrine Sulfate (Ephedrine Sulfate) 5 mg IVPUSH ASDIRECTED PRN PRN Reason: Hypotension Fentanyl (Sublimaze) 100 mcg EPIDUR Q3H PRN PRN Reason: Pain Last Admin: 03/31/17 07:58 Dose: 100 mcg Fentanyl/Bupivacaine HCl (Fentanyl/Bupivacaine/Ns 2 Mcg-0.125% 100 Ml) 100 ml EPIDUR ASDIRECTED SHERI Last Admin: 03/31/17 07:58 Dose: 100 ml Lactated Ringer's (Ringers, Lactated) 1,000 mls @ 40 mls/hr IV ASDIRECTED SHERI Last Infusion: 03/31/17 02:41 Dose: 5 mls/hr Oxytocin/Lactated Ringer's (Pitocin In Lr 10 Units/1,000 Ml) 10 unit in 1,000 mls @ 500 mls/hr IV .CONTINUOUS SHERI Last Admin: 03/31/17 15:22 Dose: 500 mls/hr Lactated Ringer's (Ringers, Lactated) Confirm Administered Dose 0 mls @ as directed .ROUTE .STK-MED ONE Stop: 03/30/17 15:36 Oxytocin/Lactated Ringer's (Pitocin In Lr 10 Units/1,000 Ml) 10 unit in 1,000 mls @ 12 mls/hr IV TITRATE SHERI; 2 MUNITS/MIN PRN Reason: Protocol Last Titration: 03/31/17 07:40 Dose: 3 munits/min, 18 mls/hr Ketorolac Tromethamine (Toradol) Confirm Administered Dose 30 mg .ROUTE .STK- MED ONE Stop: 03/30/17 15:36 Misoprostol (Cytotec) 25 mcg VAG Q4H PRN PRN Reason: cervical ripening Stop: 03/30/17 19:45 Last Admin: 03/30/17 20:15 Dose: 25 mcg Misoprostol (Cytotec) Confirm Administered Dose 600 mcg .ROUTE .STK-MED ONE Stop: 03/31/17 13:53 Last Admin: 03/31/17 14:17 Dose: Not Given Misoprostol (Cytotec) 600 mcg PO ONETIME ONE Stop: 03/31/17 14:16 Last Admin: 03/31/17 13:54 Dose: 600 mcg Morphine Sulfate (Duramorph Pf) Confirm Administered Dose 10 mg .ROUTE .STK-MED ONE Stop: 03/30/17 15:36 Nalbuphine HCl (Nubain) 10 mg IVPUSH Q2H PRN PRN Reason: Pain (moderate 4-6) Last Admin: 03/31/17 07:34 Dose: 10 mg Ondansetron HCl (Zofran) 4 mg IVPUSH Q4H PRN PRN Reason: Nausea/Vomiting Last Admin: 03/31/17 09:14 Dose: 4 mg Ondansetron HCl (Zofran) Confirm Administered Dose 4 mg .ROUTE .STK-MED ONE Stop: 03/30/17 15:36 Ondansetron HCl (Zofran) 4 mg IVPUSH ONETIME PRN PRN Reason: Nausea/Vomiting Oxytocin (Pitocin) Confirm Administered Dose 10 unit .ROUTE .STK-MED ONE Stop: 03/30/17 15:36 Phenylephrine HCl (Tito-Synephrine) Confirm Administered Dose 10 mg .ROUTE .STK- MED ONE Stop: 03/30/17 15:36 Sodium Chloride (Saline Flush) 10 ml FLUSH ASDIRECTED PRN PRN Reason: Keep Vein Open Zolpidem Tartrate (Ambien) 5 mg PO BEDTIME PRN PRN Reason: Insomnia *Q Meaningful Use (DIS) - VTE *Q VTE Criteria *Q: - Stroke *Q Stroke Criteria *Q: - AMI *Q AMI Criteria *Q:
== END 2017-04-02 10:05 | disposition home or self-care (01) | DRG 560 ==
LOC: JD.OBCHECK 11:18 → JD.OB 11:19 → JD.OBCHECK 13:28 → JD.OB 13:29 → OBSVTOIN 03-31 13:42 → JD.OB 03-31 13:42
PROVIDERS: ADMIT Obstetrics & Gynecology; ATTEND Obstetrics & Gynecology
PROC: 10E0XZZ Delivery of Products of Conception, External Approach (ICD-10-PCS; principal; 2017-03-31)
PROC: 0KQM0ZZ Repair Perineum Muscle, Open Approach (ICD-10-PCS; 2017-03-31)
PROC: 3E033VJ Introduction of Other Hormone into Peripheral Vein, Percutaneous Approach (ICD-10-PCS; 2017-03-31)
PROC: 3E0P7GC Introduction of Other Therapeutic Substance into Female Reproductive, Via Natural or Artificial Opening (ICD-10-PCS; 2017-03-31)
PROC: 10907ZC Drainage of Amniotic Fluid, Therapeutic from Products of Conception, Via Natural or Artificial Opening (ICD-10-PCS; 2017-03-31)
PROC: 00HU33Z Insertion of Infusion Device into Spinal Canal, Percutaneous Approach (ICD-10-PCS; 2017-03-31)
PROC: 3E0R3CZ (ICD-10-PCS; 2017-03-31)
DX: O13.4 Gestational [pregnancy-induced] hypertension without significant proteinuria, complicating childbirth (principal); Z3A.39 39 weeks gestation of pregnancy; Z37.0 Single live birth; O99.344 Other mental disorders complicating childbirth; F41.8 Other specified anxiety disorders; O99.12 Other diseases of the blood and blood-forming organs and certain disorders involving the immune mechanism complicating childbirth; D68.0 Von Willebrand disease; O70.1 Second degree perineal laceration during delivery; M51.27 Other intervertebral disc displacement, lumbosacral region; M51.37 Other intervertebral disc degeneration, lumbosacral region; O66.0 Obstructed labor due to shoulder dystocia; O72.1 Other immediate postpartum hemorrhage; D62 Acute posthemorrhagic anemia
CPT/HCPCS: 36415; 80051; 81003; 82565; 84450; 84460; 85027; 85240; 85245; 85246; 86850; 86900; 86901; 86922; A9270-GY; J0690; J1885; J2270; J2300; J2370; J2405; J2590; J3010; J7120

== ENCOUNTER 2018-04-27 18:59 | Emergency (ER) | payer BC ==
[2018-04-27 19:11] VITALS: BP 114/78
[2018-04-27] MEDS ORDERED: Sodium Chloride 0.9% 10 ML Syringe FLUSH PRN (19:35)
--- NOTE | 2018-04-27 20:04 | EDM.PDOC ---
ED HPI GENERAL MEDICAL PROBLEM - General Chief Complaint: Cardiovascular Problem Stated Complaint: sob dizzy Time Seen by Provider: 04/27/18 19:56 Source of Information: Reports: Patient History Limitations: Reports: No Limitations - History of Present Illness INITIAL COMMENTS - FREE TEXT/NARRATIVE: 32-year-old female presents for evaluation and treatment of shortness of breath and dizziness. Patient reports symptoms started on Thursday. States that she felt diaphoretic on Thursday. On Thursday drove home (to [place]) from [place]. States today she developed sudden onset of dizziness, headache and vomiting. Reports that standing worsens the dizziness and the headache. Reports she did take a nap this afternoon and states that this improved her headache. Reports the headache is currently 3 or 4 out of 10. She reports associated symptoms of fatigue and polydipsia. She also reports a dry mouth. States she's vomited about 3 times today. reports numbness and tingling in the hands, none in the feet. No weakness. She denies any chest pain or chest palpitations. She also reports pain to her right upper abdomen, "under her rib cage". She is reports that she is short of breath, both when exerting herself and at rest. She though at first this may be a panic attack and states she has a history of these. She did take some ativan, which did not seem to help her symptoms. Patient reports that her fit bit registered heart rate in the 150s when she is a shortness of breath episode. Patient reports, aside from the lorazepam she has not taken any Medications for her symptoms today other than medications for her bipolar disorder. She has a history of an appendectomy and a cholecystectomy. Patient has a history of migraine headaches but states that this feels differently. Patient has a history of Von Willebrand's disease. Right Upper Abdominal Pain Score (Numeric/FACES): 2 - Related Data Allergies Allergy/AdvReac Type Severity Reaction Status Date / Time amoxicillin [Amoxicillin] Allergy Itching Verified 04/27/18 19:11 aspirin AdvReac Bleeding Verified 04/27/18 19:11 Home Meds: Home Meds Desmopressin [Stimate 0.15% Nasal [place]] 1 spray NASBOTH ASDIRECTED PRN [History] LORazepam 0.25 mg PO Q4H PRN 04/27/18 [History] OXcarbazepine [Trileptal] 75 mg PO DAILY 04/27/18 [History] buPROPion [Wellbutrin] 75 mg PO BEDTIME 04/27/18 [History] Past Medical History HEENT History: Reports: Impaired Vision Other HEENT History: wears contacts Cardiovascular History: Reports: Other (See Below) Gastrointestinal History: Reports: GERD, Hemorrhoids 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: cone biopsy with LEEP Musculoskeletal History: Reports: Back Pain, Chronic, Other (See Below) Other Musculoskeletal History: herniated discs Neurological History: Reports: Migraines Psychiatric History: Reports: Anxiety, Bipolar, Depression Hematologic History: Reports: Other (See Below) Other Hematologic History: Von Willebrand disease - Infectious Disease History Infectious Disease History: Reports: Chicken Pox - Past Surgical History HEENT Surgical History: Reports: Tonsillectomy, Other (See Below) Other HEENT Surgeries/Procedures: tooth extraction GI Surgical History: Reports: Appendectomy, Cholecystectomy, Other (See Below) Female Surgical History: Reports: Cystectomy, D&C, LEEP Social & Family History - Family History Family Medical History: Noncontributory - Tobacco Use Smoking Status *Q: Never Smoker - Caffeine Use Caffeine Use: Reports: Coffee, Soda - Recreational Drug Use Recreational Drug Use: No - Living Situation & Occupation Living situation: Reports: with Significant Other Occupation: Employed ED ROS GENERAL - Review of Systems Review Of Systems: See Below Constitutional: Reports: Fatigue, Diaphoresis. Denies: Fever, Chills, Decreased Appetite, Weight Loss, Weight Gain HEENT: Denies: Ear Pain, Throat Pain Respiratory: Reports: Shortness of Breath. Denies: Cough Cardiovascular: Reports: Lightheadedness. Denies: Chest Pain, Palpitations, Syncope GI/Abdominal: Reports: Abdominal Pain (RUQ, "under rib cage" ), Nausea, Vomiting : Denies: Dysuria Neurological: Reports: Dizziness, Headache, Numbness (finger tips), Tingling ( finger tips). Denies: Syncope, Weakness ED EXAM, GENERAL - Physical Exam Exam: See Below Exam Limited By: No Limitations General Appearance: Alert, WD/WN, No Apparent Distress Eye Exam: Bilateral Eye: EOMI, Normal Inspection, PERRL Ears: Normal External Exam, Normal Canal, Hearing Grossly Normal, Normal TMs Nose: Normal Inspection Throat/Mouth: Normal Inspection, Normal Lips, Normal Oropharynx, Normal Voice, No Airway Compromise Head: Atraumatic, Normocephalic Neck: Normal Inspection, Non-Tender, Full Range of Motion Respiratory/Chest: No Respiratory Distress, Lungs Clear, Normal Breath Sounds Cardiovascular: Normal Peripheral Pulses, Regular Rate, Rhythm, No Murmur Peripheral Pulses: 2+: Radial (L), Radial (R), Posterior Tibial (L), Posterior Tibial (R) GI/Abdominal: Normal Bowel Sounds, Soft, Non-Tender Extremities: Normal Inspection Neurological: Alert, Oriented, CN II-XII Intact, Normal Cognition, Other ( Normal heel to mcnally testing, normal finger to nose testing, good strength, dorsiflexion and plantar flexion pot 5 out of 5 bilaterally. Negative Babinski. No pronator drift.) Psychiatric: Normal Mood, Anxious Skin Exam: Warm, Dry, Normal Color EKG INTERPRETATION EKG Date: 04/27/18 Time: 19:45 Rhythm: NSR Rate (Beats/Min): 97 [place]: Normal P-Wave: Present QRS: Normal ST-T: Normal QT: Normal EKG Interpretation Comments: NSR at 97 bpm. J-point elevation reflection of a healthy heart in this age group. No left axis deviation. No left ventricular hypertrophy. No interventricular conduction delay. QTc within normal limits at 419. Reviewed by myself and Dr. Terry. Course - Vital Signs Last Recorded V/S: Last Vital Signs Temp 98.0 F 04/27/18 19:07 Pulse 93 04/27/18 19:07 Resp 13 04/27/18 19:07 BP 114/78 04/27/18 19:07 Pulse Ox 99 04/27/18 19:07 Orthostatic Blood Pressure [ 112/89 Standing] Orthostatic Blood Pressure [ 116/86 Sitting] Orthostatic Blood Pressure [ 114/83 Supine] - Orders/Labs/Meds Orders: Active Orders 24 hr Category Date Time Status Cardiac Monitoring [RC] . DIRECTED Care 04/27/18 19:32 Active EKG Documentation Completion [RC] ASDIRECTED Care 04/27/18 19:34 Active Peripheral IV Care [RC] . DIRECTED Care 04/27/18 19:35 Active Head wo Cont [CT] Stat Exams 04/27/18 19:32 Taken PE Chest [Ang Chest] [CT] Stat Exams 04/27/18 20:36 Taken Peripheral IV Insertion Adult [OM.PC] Routine Oth 04/27/18 19:35 Ordered EKG 12 Lead [EK] Stat Ther 04/27/18 19:32 Ordered Labs: Laboratory Tests 04/27/18 04/27/18 04/27/18 Range/Units 19:58 19:59 19:59 WBC 9.63 (3.98-10.04) K/mm3 RBC 4.37 (3.98-5.22) M/mm3 Hgb 13.5 (11.2-15.7) gm/L Hct 40.6 (34.1-44.9) % MCV 92.9 (79.4-94.8) fl MCH 30.9 (25.6-32.2) pg MCHC 33.3 (32.2-35.5) g/dl RDW Std Deviation 43.7 (36.4-46.3) fL Plt Count 281 (182-369) K/mm3 MPV 10.1 (9.4-12.3) fl Neut % (Auto) 57.6 (34.0-71.1) % Lymph % (Auto) 33.0 (19.3-51.7) % [place] % (Auto) 8.3 (4.7-12.5) % Eos % (Auto) 0.6 L (0.7-5.8) Baso % (Auto) 0.3 (0.1-1.2) % Neut # (Auto) 5.54 (1.56-6.13) K/mm3 Lymph # (Auto) 3.18 (1.18-3.74) K/mm3 [place] # (Auto) 0.80 H (0.24-0.36) K/mm3 Eos # (Auto) 0.06 (0.04-0.36) K/mm3 Baso # (Auto) 0.03 (0.01-0.08) K/mm3 PT 9.9 (9.5-12.1) SECONDS INR < 0.93 APTT 30 (24-31) SECONDS D-Dimer, Quantitative (0.19-0.50) mg/L Sodium 139 (136-145) mEq/L Potassium 3.7 (3.5-5.1) mEq/L Chloride 105 (98-107) mEq/L Carbon Dioxide 25 (21-32) mEq/L Anion Gap 12.7 (5-15) BUN 9 (7-18) mg/dL Creatinine 1.0 (0.55-1.02) mg/dL Est Cr Clr Drug Dosing 73.35 mL/min Estimated GFR (MDRD) > 60 (>60) mL/min BUN/Creatinine Ratio 9.0 L (14-18) Glucose 92 (74-106) mg/dL Calcium 8.7 (8.5-10.1) mg/dL Magnesium 2.0 (1.8-2.4) mg/dl Total Bilirubin 0.2 (0.2-1.0) mg/dL AST 15 (15-37) U/L ALT 21 (14-59) U/L Alkaline Phosphatase 101 (46-116) U/L Total Protein 7.6 (6.4-8.2) g/dl Albumin 3.9 (3.4-5.0) g/dl Globulin 3.7 gm/dL Albumin/Globulin Ratio 1.1 (1-2) TSH 3rd Generation 2.417 (0.358-3.74) uIU/mL HCG, Qual (NEGATIVE) Urine Color (Yellow) Urine Appearance (Clear) Urine pH (5.0-8.0) Ur Specific [place] (1.005-1.030) Urine Protein (Negative) Urine Glucose (UA) (Negative) Urine Ketones (Negative) Urine Occult Blood (Negative) Urine Nitrite (Negative) Urine Bilirubin (Negative) Urine Urobilinogen (0.2-1.0) Ur Leukocyte Esterase (Negative) Urine RBC (0-5) /hpf Urine WBC (0-5) /hpf Ur Epithelial Cells (0-5) /hpf Urine Bacteria (FEW) /hpf Urine Mucus (FEW) /hpf 04/27/18 04/27/18 04/27/18 Range/Units 19:59 19:59 20:00 WBC (3.98-10.04) K/mm3 RBC (3.98-5.22) M/mm3 Hgb (11.2-15.7) gm/L Hct (34.1-44.9) % MCV (79.4-94.8) fl MCH (25.6-32.2) pg MCHC (32.2-35.5) g/dl RDW Std Deviation (36.4-46.3) fL Plt Count (182-369) K/mm3 MPV (9.4-12.3) fl Neut % (Auto) (34.0-71.1) % Lymph % (Auto) (19.3-51.7) % [place] % (Auto) (4.7-12.5) % Eos % (Auto) (0.7-5.8) Baso % (Auto) (0.1-1.2) % Neut # (Auto) (1.56-6.13) K/mm3 Lymph # (Auto) (1.18-3.74) K/mm3 [place] # (Auto) (0.24-0.36) K/mm3 Eos # (Auto) (0.04-0.36) K/mm3 Baso # (Auto) (0.01-0.08) K/mm3 PT (9.5-12.1) SECONDS INR APTT (24-31) SECONDS D-Dimer, Quantitative 0.61 H (0.19-0.50) mg/L Sodium (136-145) mEq/L Potassium (3.5-5.1) mEq/L Chloride (98-107) mEq/L Carbon Dioxide (21-32) mEq/L Anion Gap (5-15) BUN (7-18) mg/dL Creatinine (0.55-1.02) mg/dL Est Cr Clr Drug Dosing mL/min Estimated GFR (MDRD) (>60) mL/min BUN/Creatinine Ratio (14-18) Glucose (74-106) mg/dL Calcium (8.5-10.1) mg/dL Magnesium (1.8-2.4) mg/dl Total Bilirubin (0.2-1.0) mg/dL AST (15-37) U/L ALT (14-59) U/L Alkaline Phosphatase (46-116) U/L Total Protein (6.4-8.2) g/dl Albumin (3.4-5.0) g/dl Globulin gm/dL Albumin/Globulin Ratio (1-2) TSH 3rd Generation (0.358-3.74) uIU/mL HCG, Qual Negative (NEGATIVE) Urine Color Yellow (Yellow) Urine Appearance Clear (Clear) Urine pH 5.5 (5.0-8.0) Ur Specific [place] > or = 1.030 (1.005-1.030) Urine Protein Negative (Negative) Urine Glucose (UA) Negative (Negative) Urine Ketones Negative (Negative) Urine Occult Blood Negative (Negative) Urine Nitrite Negative (Negative) Urine Bilirubin Negative (Negative) Urine Urobilinogen 0.2 (0.2-1.0) Ur Leukocyte Esterase Negative (Negative) Urine RBC 0-5 (0-5) /hpf Urine WBC 0-5 (0-5) /hpf Ur Epithelial Cells 5-10 H (0-5) /hpf Urine Bacteria Moderate H (FEW) /hpf Urine Mucus Moderate H (FEW) /hpf Meds: Medications Discontinued Medications Generic Name Dose Route Start Last Admin Trade Name Freq PRN Reason Stop Dose Admin Diphenhydramine HCl 50 mg 04/27/18 20:06 04/27/18 20:17 Benadryl IVPUSH 04/27/18 20:07 50 mg ONETIME ONE Administration Sodium Chloride 1,000 mls @ 999 mls/hr 04/27/18 20:06 04/27/18 20:17 Normal Saline IV 04/27/18 21:06 999 mls/hr ONETIME ONE Administration Iopamidol 100 ml 04/27/18 20:48 04/27/18 21:31 Isovue-370 (76%) IVPUSH 04/27/18 20:49 100 ml ONETIME ONE Administration Ondansetron HCl 4 mg 04/27/18 20:06 04/27/18 20:19 Zofran IVPUSH 04/27/18 20:07 4 mg ONETIME ONE Administration Sodium Chloride 10 ml 04/27/18 19:35 04/27/18 20:19 Saline Flush FLUSH 10 ml ASDIRECTED PRN Administration Keep Vein Open - Radiology Interpretation Free Text/Narrative:: CT of the head without contrast impression per [facility]: no acute intercranial process. CT of the chest with IV contrast impression per [facility]: no acute pulmonary embolus. Nonobstructive right nephrolithiasis. - Re-Assessments/Exams Free Text/Narrative Re-Assessment/Exam: 04/27/18 20:37 d dimer returned slightly elevated at 0.61. [place] xray canceled. CT PE study ordered instead. HCG returned negative. Informed patient od + d dimer and need for CT PE study,. 04/27/18 22:15 Reviewed the labs and imaging with the patient. Offered medication for migraine she states at this point it migraine is "not that bad" and she would like to go home. Recommend follow-up with primary care if not much better or Thursday. She is to return to ER for symptoms change or worsen. Discharge instructions as documented. Departure - Departure Time of Disposition: 22:15 Disposition: Home, Self-Care 01 Condition: Fair Clinical Impression: Headache, Migraine, Anxiety Instructions: Generalized Anxiety Disorder, Adult, Migraine Headache Referrals: Concetta Negro MD [Primary Care Provider] - Forms: ED Department Discharge Additional Instructions: Rest. Make sure you are drinking plenty of fluids. Follow up with your primary care provider on or Thursday of this week if you're not much better. may take your medication that you have at home for migraine and anxiety as needed. Please return to the ER if your symptoms change or worsen. - My Orders Last 24 Hours: My Active Orders 04/27/18 19:32 Cardiac Monitoring [RC] . DIRECTED Head wo Cont [CT] Stat EKG 12 Lead [EK] Stat 04/27/18 19:34 EKG Documentation Completion [RC] ASDIRECTED 04/27/18 19:35 Peripheral IV Care [RC] . DIRECTED Peripheral IV Insertion Adult [OM.PC] Routine 04/27/18 20:36 PE Chest [Ang Chest] [CT] Stat - Assessment/Plan Last 24 Hours: My Active Orders 04/27/18 19:32 Cardiac Monitoring [RC] . DIRECTED Head wo Cont [CT] Stat EKG 12 Lead [EK] Stat 04/27/18 19:34 EKG Documentation Completion [RC] ASDIRECTED 04/27/18 19:35 Peripheral IV Care [RC] . DIRECTED Peripheral IV Insertion Adult [OM.PC] Routine 04/27/18 20:36 PE Chest [Ang Chest] [CT] Stat
[2018-04-27] MEDS ORDERED: Sodium Chloride 0.9% 1,000 ML IV ONE (20:06)
[2018-04-27] MEDS ORDERED: diphenhydrAMINE 50 MG/ML SDV IVPUSH ONE (20:06)
[2018-04-27] MEDS ORDERED: Ondansetron 4 MG/2 ML SDV IVPUSH ONE (20:06)
[2018-04-27] MEDS ORDERED: Iopamidol 755 Mg/ML 100 ML Bottle IVPUSH ONE (20:48)
--- NOTE | 2018-04-28 07:19 | CT ---
Head CT Technique: Multiple axial sections were obtained through the brain. Intravenous contrast was not utilized. Comparison: No prior intracranial imaging. Findings: Ventricles along with basal cisterns and sulci over the convexities appear within normal limits for the patient's age. No abnormal parenchymal densities are seen. No evidence of intracranial hemorrhage. No midline shift or mass effect is seen. Bone window settings were reviewed which show no acute calvarial abnormality. Visualized sinuses are clear. Impression: 1. Nothing acute is seen on noncontrast head CT exam. Diagnostic code #1 Agree with preliminary report issued by [facility] ([facility] preliminary report dictated on 04/27/18, 10:37 PM Central Time)
--- NOTE | 2018-04-28 07:29 | CT ---
CT chest Technique: Multiple axial sections were obtained from above the lung apices inferiorly through the lung bases. Intravenous contrast was utilized. Study has been performed as a pulmonary angiogram protocol. Findings: Pulmonary arteries are fairly well-opacified. No filling defects are seen to indicate pulmonary embolism. Mediastinum and hilar regions appear within normal limits. No axillary adenopathy is seen. No pericardial thickening is seen. Nonobstructing stone is noted within the right kidney measuring about 4 mm in size. Surgical clips are seen from prior cholecystectomy. Lung window settings appear within normal limits. No abnormal parenchymal opacities are seen. No pleural effusion is noted. Bone window settings appear within normal limits for the patient's age. Impression: 1. No findings of pulmonary embolism. Nothing acute is seen on CT study of the chest. 2. Nonobstructing stone within the right kidney measuring 4 mm. Previous cholecystectomy. Diagnostic code #2 I agree with preliminary report issued by [facility] ([facility] preliminary report dictated on 04/27/18, 10:42 PM Central Time)
== END 2018-04-27 22:25 | disposition home or self-care (01) ==
LOC: JD.ED 18:59
DX: G43.909 Migraine, unspecified, not intractable, without status migrainosus (principal); F41.9 Anxiety disorder, unspecified; Z90.49 Acquired absence of other specified parts of digestive tract; Z88.1 Allergy status to other antibiotic agents; Z88.6 Allergy status to analgesic agent
CPT/HCPCS: 36415; 70450; 71275; 80053; 81001; 83735; 84443; 84703; 85025; 85379; 85610; 85730; 93005; 96361; 96374; 96375; 99284; J1200; J2405; J7040; J7050; Q9967; 93010

== ENCOUNTER 2019-04-08 16:27 | Emergency (ER) | payer BC ==
[2019-04-08 17:21] VITALS: BP 125/81
[2019-04-08] MEDS ORDERED: Ondansetron 4 MG Tab.DIS PO ONE (17:30)
[2019-04-08] MEDS ORDERED: LORazepam 2 MG/ML SDV IM ONE (17:30)
--- NOTE | 2019-04-08 19:20 | EDM.PDOCBH ---
ED HPI GENERAL MEDICAL PROBLEM - General Chief Complaint: Behavioral/Psych Stated Complaint: MEDICATION WITHDRAWL Time Seen by Provider: 04/08/19 16:39 Source of Information: Reports: Patient History Limitations: Reports: No Limitations - History of Present Illness INITIAL COMMENTS - FREE TEXT/NARRATIVE: 33-year-old female presents for evaluation and treatment medication withdrawals. Patient reports 2 weeks ago she was taken off Effexor and put on Latuda. She was on 150 mg of Effexor daily. States that she was tapered down decreasing her dosage by 37.5 mg every 5 days. She finished taper yesterday. She has been taking 20 mg of Latuda over the last 2 weeks. She reports today was the worst. She reports her face feeling tingly and itchy. She states that she couldn't stop eating. She reports a yost to her head and felt bugs crawling over her. She reports hot flashes, emotional highs and lows and states that she was crying and at this point her face still feels numb. She reports nausea and states she vomited 3 times. She also reports a severe headache and shortness of breath. No chest pain or abdominal pain. She did take 0.5 mg of Ativan prior to her arrival here in the ER. Patient has been seeing a psychiatrist with [facility] via telemedicine. Her primary provider is Dr. Tang. - Related Data Allergies Allergy/AdvReac Type Severity Reaction Status Date / Time amoxicillin [Amoxicillin] Allergy Itching Verified 04/27/18 19:11 codeine Allergy Pain Verified 04/08/19 16:39 aspirin AdvReac Bleeding Verified 04/27/18 19:11 Home Meds: Home Meds Desmopressin [Stimate 0.15% Nasal [place]] 1 spray NASBOTH ASDIRECTED PRN [History] LORazepam 0.25 mg PO Q4H PRN 04/27/18 [History] LORazepam [Ativan] 1 mg PO Q6H PRN #20 tab 04/08/19 [Rx] Lurasidone HCl [Latuda] 20 mg PO DAILY 04/08/19 [History] Past Medical History HEENT History: Reports: Impaired Vision Other HEENT History: wears contacts Cardiovascular History: Reports: Other (See Below) Gastrointestinal History: Reports: GERD, Hemorrhoids 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 CLEANER History: cone biopsy with LEEP Musculoskeletal History: Reports: Back Pain, Chronic, Other (See Below) Other Musculoskeletal History: herniated discs Neurological History: Reports: Migraines Psychiatric History: Reports: Anxiety, Bipolar, Depression Hematologic History: Reports: Other (See Below) Other Hematologic History: Von Willebrand disease - Infectious Disease History Infectious Disease History: Reports: Chicken Pox - Past Surgical History HEENT Surgical History: Reports: Tonsillectomy, Other (See Below) Other HEENT Surgeries/Procedures: tooth extraction GI Surgical History: Reports: Appendectomy, Cholecystectomy, Other (See Below) Female Surgical History: Reports: Cystectomy, D&C, LEEP Social & Family History - Family History Family Medical History: Noncontributory - Tobacco Use Smoking Status *Q: Never Smoker - Caffeine Use Caffeine Use: Reports: Energy Drinks, Soda - Recreational Drug Use Recreational Drug Type: Reports: Marijuana/Hashish - Living Situation & Occupation Living situation: Reports: with Significant Other Occupation: Employed ED ROS GENERAL - Review of Systems Review Of Systems: See Below Respiratory: Reports: Shortness of Breath Cardiovascular: Denies: Chest Pain GI/Abdominal: Reports: Nausea, Vomiting. Denies: Abdominal Pain Neurological: Reports: Headache, Numbness, Tingling Psychiatric: Reports: Anxiety ED EXAM, BEHAVIORAL HEALTH - Physical Exam Exam: See Below Exam Limited By: No Limitations General Appearance: Alert, WD/WN, Anxious, Mild Distress Ears: Normal External Exam Nose: Normal Inspection Throat/Mouth: Normal Inspection, Normal Lips, Normal Voice, No Airway Compromise Respiratory/Chest: No Respiratory Distress, Lungs Clear, Normal Breath Sounds Cardiovascular: Normal Peripheral Pulses, Regular Rate, Rhythm, No Murmur Neurological: Alert, Normal Mood/Affect, Normal Cognition Psychiatric: Alert, Restless. No: Depressed Mood Skin Exam: Warm, Dry, Normal color COURSE, BEHAVIORAL HEALTH COMP - Course Vital Signs: Last Vital Signs Temp 97.8 F 04/08/19 16:42 Pulse 97 04/08/19 16:42 Resp 20 04/08/19 16:42 BP 125/81 04/08/19 16:42 Pulse Ox 95 04/08/19 16:42 Orders, Labs, Meds: Laboratory Tests 04/08/19 04/08/19 04/08/19 Range/Units 17:56 17:56 17:56 WBC 10.14 H (3.98-10.04) K/mm3 RBC 4.48 (3.98-5.22) M/mm3 Hgb 13.9 (11.2-15.7) gm/L Hct 41.1 (34.1-44.9) % MCV 91.7 (79.4-94.8) fl MCH 31.0 (25.6-32.2) pg MCHC 33.8 (32.2-35.5) g/dl RDW Std Deviation 40.9 (36.4-46.3) fL Plt Count 281 (182-369) K/mm3 MPV 9.8 (9.4-12.3) fl Neut % (Auto) 57.2 (34.0-71.1) % Lymph % (Auto) 35.2 (19.3-51.7) % [place] % (Auto) 6.1 (4.7-12.5) % Eos % (Auto) 1.0 (0.7-5.8) Baso % (Auto) 0.3 (0.1-1.2) % Neut # (Auto) 5.80 (1.56-6.13) K/mm3 Lymph # (Auto) 3.57 (1.18-3.74) K/mm3 [place] # (Auto) 0.62 H (0.24-0.36) K/mm3 Eos # (Auto) 0.10 (0.04-0.36) K/mm3 Baso # (Auto) 0.03 (0.01-0.08) K/mm3 Sodium 141 (136-145) mEq/L Potassium 3.3 L (3.5-5.1) mEq/L Chloride 105 (98-107) mEq/L Carbon Dioxide 25 (21-32) mEq/L Anion Gap 14.3 (5-15) BUN 12 (7-18) mg/dL Creatinine 0.9 (0.55-1.02) mg/dL Est Cr Clr Drug Dosing 80.75 mL/min Estimated GFR (MDRD) > 60 (>60) mL/min BUN/Creatinine Ratio 13.3 L (14-18) Glucose 119 H (74-106) mg/dL Calcium 8.5 (8.5-10.1) mg/dL Magnesium 1.9 (1.8-2.4) mg/dl Total Bilirubin 0.5 (0.2-1.0) mg/dL AST 21 (15-37) U/L ALT 24 (14-59) U/L Alkaline Phosphatase 93 (46-116) U/L Total Protein 7.1 (6.4-8.2) g/dl Albumin 3.9 (3.4-5.0) g/dl Globulin 3.2 gm/dL Albumin/Globulin Ratio 1.2 (1-2) HCG, Qual Negative (NEGATIVE) Medications Discontinued Medications Generic Name Dose Route Start Last Admin Trade Name Freq PRN Reason Stop Dose Admin Lorazepam 1 mg 04/08/19 17:30 04/08/19 17:57 Ativan IM 04/08/19 17:31 1 mg ONETIME ONE Administration Ondansetron HCl 4 mg 04/08/19 17:30 04/08/19 17:57 Zofran Odt PO 04/08/19 17:31 4 mg ONETIME ONE Administration Re-Assessment/Re-Exam: 19:16 Patient much more calm. She has eaten. I suspect this is side effect s from coming off the Effexor. This medication has a short half life and is well known to cause withdrawal symptoms. Discussed treatment options. May go back on the Effexor and taper off more slowly of may treat symptoms. she opts to treat symptoms. Will prescribe Ativan. she has Zofran at home. Reviewed the labs with the patient. Discharge instructions as documented. Departure - Departure Time of Disposition: 19:16 Disposition: Home, Self-Care 01 Condition: Good Clinical Impression: Medication withdrawal - Discharge Information *PRESCRIPTION DRUG MONITORING PROGRAM REVIEWED*: No *COPY OF PRESCRIPTION DRUG MONITORING REPORT IN PATIENT HANG: No Prescriptions: LORazepam [Ativan] 1 mg PO Q6H PRN #20 tab PRN Reason: Anxiety Referrals: Concetta Negro MD [Primary Care Provider] - Forms: ED Department Discharge Additional Instructions: you were given medication in the ER that can affect your ability to drive and operate machinery, do n to drive or operate machinery within 10 hours of taking controlled medications. Ativan 1 tab every 6 hours as needed for anxiety. Do not drive or operate machinery within 10 hours of taking this medication. Follow-up with your psychiatrist as planned. make sure you are drinking plenty of fluids. Take the Zofran you have at home as needed for nausea. Please return to the ER if your symptoms change or worsen.
== END 2019-04-08 19:32 | disposition home or self-care (01) ==
LOC: JD.ED 16:27
DX: F19.939 Other psychoactive substance use, unspecified with withdrawal, unspecified (principal); F31.9 Bipolar disorder, unspecified; F32.9 Major depressive disorder, single episode, unspecified; F41.9 Anxiety disorder, unspecified; Z88.1 Allergy status to other antibiotic agents; Z88.5 Allergy status to narcotic agent; Z88.6 Allergy status to analgesic agent; Z98.890 Other specified postprocedural states; Z90.6 Acquired absence of other parts of urinary tract; Z90.49 Acquired absence of other specified parts of digestive tract
CPT/HCPCS: 36415; 80053; 83735; 84703; 85025; 96372; 99284; A9270; J2060; 99283

== ENCOUNTER 2019-04-11 17:30 | Emergency (ER) | payer BC ==
[2019-04-11 17:44] VITALS: BP 148/105
--- NOTE | 2019-04-11 17:57 | EDM.PDOCBH ---
ED HPI GENERAL MEDICAL PROBLEM - General Chief Complaint: Behavioral/Psych Stated Complaint: WITHDRAWL FROM MEDICATIONS Time Seen by Provider: 04/11/19 17:56 Source of Information: Reports: Patient - History of Present Illness INITIAL COMMENTS - FREE TEXT/NARRATIVE: 33-year-old female presents to the ED with excessive mood lability with crying spells for no apparent reason. She experiencing a lot of hot flushes and like electricity symptoms in her head and neck and body. Feels hot and cold. She did nausea without vomiting. The symptoms have occurred since taking her last dose of Effexor or 37.5 mg on , April 07. She has been on a weaning protocol after being on 150 mg daily for 2 years . She is been weaning by 50 mg basically per week for 3 weeks with the addition of Latuda 20 mg daily started 3 weeks ago when she started to wean from the Effexor. She was seen on Thursday last week with early symptoms of withdrawal and decided to continue off the medication and just take Ativan as needed. However she is finding that the withdrawal symptoms are intolerable and she has no control of her mood swings, crying jags etc. Think the best treatment option is for her to return to Effexor medication. She can still eat but is finding she is eating very poorly. Vomiting. Sleeping adequately if she takes Ativan 1 mg at bedtime. Onset: Sudden Onset Date: 04/07/19 Duration: Day(s):, Getting Worse Location: Reports: Generalized (Generalized symptoms of uncontrolled mood swings with crying spells. Feeling of being hot flushed and prickly all over. Nausea.) Quality: Reports: Other Severity: Severe (As above) Improves with: Reports: None Worsens with: Reports: None Context: Reports: Other (Has been weaning off of medication effects or for 3 weeks. Should she had been on 150 mg daily for the last 2 years.). Denies: Activity, Exercise, Lifting, Sick Contact, Trauma Associated Symptoms: Reports: Fever/Chills, Headaches, Loss of Appetite, Malaise , Nausea/Vomiting. 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.) - Related Data Allergies Allergy/AdvReac Type Severity Reaction Status Date / Time amoxicillin [Amoxicillin] Allergy Itching Verified 04/11/19 17:44 codeine Allergy Pain Verified 04/11/19 17:44 aspirin AdvReac Bleeding Verified 04/11/19 17:44 Home Meds: Home Meds Desmopressin [Stimate 0.15% Nasal [place]] 1 spray NASBOTH ASDIRECTED PRN [History] LORazepam 0.25 mg PO Q4H PRN 04/27/18 [History] LORazepam [Ativan] 1 mg PO Q6H PRN #20 tab 04/08/19 [Rx] Lurasidone HCl [Latuda] 20 mg PO DAILY 04/08/19 [History] Venlafaxine [Effexor XR 24 Hr] 37.5 mg PO BID #60 cap.er 04/11/19 [Rx] Past Medical History HEENT History: Reports: Impaired Vision Other HEENT History: wears contacts Cardiovascular History: Reports: Other (See Below) Gastrointestinal History: Reports: GERD, Hemorrhoids 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 with LEEP Musculoskeletal History: Reports: Back Pain, Chronic, Other (See Below) Other Musculoskeletal History: herniated discs Neurological History: Reports: Migraines Psychiatric History: Reports: Anxiety, Bipolar, Depression Hematologic History: Reports: Other (See Below) Other Hematologic History: Von Willebrand disease - Infectious Disease History Infectious Disease History: Reports: Chicken Pox - Past Surgical History HEENT Surgical History: Reports: Tonsillectomy, Other (See Below) Other HEENT Surgeries/Procedures: tooth extraction GI Surgical History: Reports: Appendectomy, Cholecystectomy, Other (See Below) Female Surgical History: Reports: Cystectomy, D&C, LEEP Social & Family History - Family History Family Medical History: Noncontributory - Tobacco Use Smoking Status *Q: Never Smoker - Caffeine Use Caffeine Use: Reports: Coffee, Soda - Living Situation & Occupation Living situation: Reports: with Significant Other Occupation: Employed ED ROS GENERAL - Review of Systems Review Of Systems: See Below Constitutional: Reports: Malaise, Weakness, Fatigue, Decreased Appetite. Denies : Fever, Chills HEENT: Reports: No Symptoms Respiratory: Reports: No Symptoms Cardiovascular: Reports: No Symptoms Endocrine: Reports: Fatigue GI/Abdominal: Reports: Decreased Appetite, Nausea. Denies: Vomiting : Reports: No Symptoms Musculoskeletal: Reports: No Symptoms Skin: Reports: No Symptoms Neurological: Reports: Dizziness, Headache, Numbness, Paresthesia, Tingling, Weakness, Other (Feels hot prickly sensations like flushes.). Denies: Confusion , Pre-Existing Deficit, Syncope, Tremors, Trouble Speaking, Difficulty Walking, Change in Speech, Gait Disturbance Psychiatric: Reports: Anxiety, Depression (No true suicidal ideation she just feels that if she happened to would not be such a bad thing.), Mood Lability. Denies: Hallucinations, Homicidal Ideation, Suicidal Ideation Hematologic/Lymphatic: Reports: No Symptoms Immunologic: Reports: No Symptoms ED EXAM, BEHAVIORAL HEALTH - Physical Exam Exam: See Below Exam Limited By: No Limitations General Appearance: Alert, WD/WN, Moderate Distress (Stop crying.) Eye Exam: Bilateral Eye: Normal Inspection (Mild bilateral conjunctival injection from crying.) Throat/Mouth: Normal Inspection, Normal Lips, Normal Teeth, Normal Oropharynx Head: Atraumatic, Normocephalic Neck: Normal Inspection, Supple, Non-Tender, Full Range of Motion. No: Lymphadenopathy (L), Lymphadenopathy (R) Respiratory/Chest: No Respiratory Distress, Lungs Clear, Normal Breath Sounds, No Accessory Muscle Use Cardiovascular: Normal Peripheral Pulses, Regular Rate, Rhythm, No Edema, No Gallop, No Murmur, No Rub COURSE, BEHAVIORAL HEALTH COMP - Course Vital Signs: Last Vital Signs Temp 36.9 C 04/11/19 17:40 Pulse 95 04/11/19 17:40 Resp 16 04/11/19 17:40 BP 148/105 H 04/11/19 17:40 Pulse Ox 100 04/11/19 17:40 Re-Assessment/Re-Exam: 33-year-old female attends the ED with significant mood lability and uncontrolled mood swings with crying spells. She has associated hot flushing prickly sensation in her skin and face and neck. Associated nausea without vomiting although appetite remains quite poor. The symptoms have started since she took her last tablet of Effexor 37.5 mg last , April 07. Patient had been weaning off the 150 mg strength which should been taking for 2 years over the last 3 weeks. Her psychiatrist who placed her on Latuda 20 mg once daily to take the place of the Effexor. She is trying to go over the weekend without resuming Effexor dose using Ativan when necessary but is finding the symptoms are persisting in spite of being off the medication now for 4 days. At present she is quite distraught. I believe the only resolution is to return her to low-dose Effexor. Suggest resuming 37.5 mg dose twice a day until she can speak with her psychiatrist and then be weaned off the medication much more slowly. She should expect improvement over the next 3 days. She is not exhibiting any signs or symptoms of hypomania or manic behavior. She has depressed symptomatology but is not suicidal. Departure - Departure Time of Disposition: 18:06 Disposition: Home, Self-Care 01 Condition: Fair Clinical Impression: Adverse effects of medication Qualifiers: Encounter type: initial encounter Qualified Code(s): T50.905A - Adverse effect of unspecified drugs, medicaments and biological substances, initial encounter Medication withdrawal Qualifiers: Substance type: other psychostimulant Qualified Code(s): F15.93 - Other stimulant use, unspecified with withdrawal - Discharge Information *PRESCRIPTION DRUG MONITORING PROGRAM REVIEWED*: Not Applicable *COPY OF PRESCRIPTION DRUG MONITORING REPORT IN PATIENT HANG: Not Applicable Prescriptions: Venlafaxine [Effexor XR 24 Hr] 37.5 mg PO BID #60 cap.er Referrals: Concetta Negro MD [Primary Care Provider] - Forms: ED Department Discharge Additional Instructions: Evaluation the emergency room today in regards to significant side effects since discontinuing defects or 150 mg daily. You have been weaning off this medication appropriately with the last tablet being taken on April 07. Since that time you have appreciated violent mood swings with uncontrollable crying. Hot flushes and nausea. These are all adverse effects of withdrawal from this medication which you have been on for 2 years prior. He does work on different receptors in the brain than Latuda. Suggest returning to Effexor 37.5 mg tablet twice daily until discussion with your psychiatrist to relieve your acute symptoms. May have to be weaned off the medication over much more prolonged period of time. Expect an improvement over the next 3 days. Please contact your psychiatrist when able.
== END 2019-04-11 18:20 | disposition home or self-care (01) ==
LOC: JD.ED 17:30
DX: R20.2 Paresthesia of skin (principal); R11.0 Nausea; T43.595A Adverse effect of other antipsychotics and neuroleptics, initial encounter; F19.939 Other psychoactive substance use, unspecified with withdrawal, unspecified; Z88.1 Allergy status to other antibiotic agents; Z88.5 Allergy status to narcotic agent; Z88.6 Allergy status to analgesic agent; Z79.899 Other long term (current) drug therapy
CPT/HCPCS: 99283

== ENCOUNTER 2019-11-25 07:07 | Emergency (ER) | payer BC ==
[2019-11-25] MEDS ORDERED: Ondansetron 4 MG/2 ML SDV IVPUSH ONE (07:18)
[2019-11-25] MEDS ORDERED: Sodium Chloride 0.9% 10 ML Syringe FLUSH PRN (07:18)
[2019-11-25] MEDS ORDERED: HYDROmorphone 1 MG/ML Syringe IVPUSH ONE (07:19)
[2019-11-25] MEDS ORDERED: Ketorolac 30 MG/ML SDV IVPUSH ONE (07:19)
--- NOTE | 2019-11-25 07:28 | EDM.PDOC ---
ED HPI GENERAL MEDICAL PROBLEM - General Chief Complaint: Abdominal Pain Stated Complaint: ABDOMINAL AND BACK PAIN Time Seen by Provider: 11/25/19 07:14 Source of Information: Reports: Patient History Limitations: Reports: No Limitations - History of Present Illness INITIAL COMMENTS - FREE TEXT/NARRATIVE: The patient presents with right flank and right abdominal pain. This started at 3am this morning. She also has nausea but no vomiting. She has no history of kidney stones. She does not have a gallbladder or appendix. She has no fever, chills, cough, congestion, runny nose, chest pain, shortness of breath, dysuria or hematuria. Onset: Sudden Duration: Hour(s): (since 3am) Location: Reports: Abdomen, Back Quality: Reports: Sharp Severity: Severe Improves with: Reports: None Worsens with: Reports: None Associated Symptoms: Reports: Nausea/Vomiting. Denies: Chest Pain, Cough, Fever /Chills, Headaches, Shortness of Breath Right Abdomen Pain Score (Numeric/FACES): 9 - Related Data Allergies Allergy/AdvReac Type Severity Reaction Status Date / Time amoxicillin [Amoxicillin] Allergy Itching Verified 11/25/19 07:23 codeine Allergy Pain Verified 11/25/19 07:23 aspirin AdvReac Bleeding Verified 11/25/19 07:23 Home Meds: Home Meds Desmopressin [Stimate 0.15% Nasal [place]] 1 spray NASBOTH ASDIRECTED PRN [History] LORazepam [Ativan] 1 mg PO Q6H PRN #20 tab 04/08/19 [Rx] Hydrocodone/Acetaminophen [Hydrocodon-Acetaminophen 5-325] 1 - 2 each PO Q6HR PRN #20 tablet 11/25/19 [Rx] Tamsulosin HCl [Flomax] 0.4 mg PO DAILY #7 cap.er.24h 11/25/19 [Rx] Past Medical History HEENT History: Reports: Impaired Vision Other HEENT History: wears contacts Cardiovascular History: Reports: Other (See Below) Gastrointestinal History: Reports: GERD, Hemorrhoids 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 TENDER History: cone biopsy with LEEP Musculoskeletal History: Reports: Back Pain, Chronic, Other (See Below) Other Musculoskeletal History: herniated discs Neurological History: Reports: Migraines Psychiatric History: Reports: Anxiety, Bipolar, Depression Hematologic History: Reports: Other (See Below) Other Hematologic History: Von Willebrand disease - Infectious Disease History Infectious Disease History: Reports: Chicken Pox - Past Surgical History HEENT Surgical History: Reports: Tonsillectomy, Other (See Below) Other HEENT Surgeries/Procedures: tooth extraction GI Surgical History: Reports: Appendectomy, Cholecystectomy, Other (See Below) Female Surgical History: Reports: Cystectomy, D&C, LEEP Social & Family History - Family History Family Medical History: Noncontributory - Caffeine Use Caffeine Use: Reports: Coffee, Soda - Living Situation & Occupation Living situation: Reports: with Significant Other Occupation: Employed ED ROS GENERAL - Review of Systems Review Of Systems: See Below Constitutional: Reports: No Symptoms HEENT: Reports: No Symptoms Respiratory: Reports: No Symptoms Cardiovascular: Reports: No Symptoms Endocrine: Reports: No Symptoms GI/Abdominal: Reports: Abdominal Pain, Nausea. Denies: Diarrhea, Vomiting : Reports: Flank Pain (right). Denies: Dysuria, Hematuria Musculoskeletal: Reports: Back Pain (right flank) ED EXAM, GI/ABD - Physical Exam Exam: See Below Exam Limited By: No Limitations General Appearance: Alert, No Apparent Distress Ears: Normal External Exam Nose: Normal Inspection Head: Atraumatic, Normocephalic Neck: Normal Inspection Respiratory/Chest: No Respiratory Distress, Lungs Clear, Normal Breath Sounds Cardiovascular: Regular Rate, Rhythm, No Edema, No Murmur GI/Abdominal Exam: Soft, No Organomegaly, No Mass, Tender (Moderate tenderness to the right abdomen) Back Exam: CVA Tenderness (R) Course - Vital Signs Last Recorded V/S: Last Vital Signs Temp 97.3 F 11/25/19 07:10 Pulse 76 11/25/19 07:10 Resp 20 11/25/19 07:10 BP 135/90 11/25/19 07:10 Pulse Ox 98 11/25/19 07:10 - Orders/Labs/Meds Orders: Active Orders 24 hr Category Date Time Status Peripheral IV Care [RC] . DIRECTED Care 11/25/19 07:18 Active Sodium Chloride 0.9% [Normal Saline] 1,000 ml Med 11/25/19 07:30 Active IV ASDIRECTED Sodium Chloride 0.9% [Saline Flush] Med 11/25/19 07:18 Active 10 ml FLUSH ASDIRECTED PRN ED Antiemetic Medication Reflex [OM.PC] Stat Oth 11/25/19 07:18 Ordered Peripheral IV Insertion Adult [OM.PC] Stat Oth 11/25/19 07:18 Ordered Medication Orders Sodium Chloride (Normal Saline) 1,000 mls @ 125 mls/hr IV ASDIRECTED SHERI Last Admin: 11/25/19 07:42 Dose: 125 mls/hr Sodium Chloride (Saline Flush) 10 ml FLUSH ASDIRECTED PRN PRN Reason: Keep Vein Open Last Admin: 11/25/19 07:35 Dose: 10 ml Labs: Laboratory Tests 11/25/19 11/25/19 11/25/19 Range/Units 07:30 07:35 07:35 WBC 9.67 (3.98-10.04) K/mm3 RBC 4.24 (3.98-5.22) M/mm3 Hgb 13.2 (11.2-15.7) gm/dl Hct 40.5 (34.1-44.9) % MCV 95.5 H D (79.4-94.8) fl MCH 31.1 (25.6-32.2) pg MCHC 32.6 (32.2-35.5) g/dl RDW Std Deviation 43.3 (36.4-46.3) fL Plt Count 273 (182-369) K/mm3 MPV 10.3 (9.4-12.3) fl Neut % (Auto) 70.6 (34.0-71.1) % Lymph % (Auto) 22.0 (19.3-51.7) % [place] % (Auto) 6.6 (4.7-12.5) % Eos % (Auto) 0.3 L (0.7-5.8) Baso % (Auto) 0.2 (0.1-1.2) % Neut # (Auto) 6.82 H (1.56-6.13) K/mm3 Lymph # (Auto) 2.13 (1.18-3.74) K/mm3 [place] # (Auto) 0.64 H (0.24-0.36) K/mm3 Eos # (Auto) 0.03 L (0.04-0.36) K/mm3 Baso # (Auto) 0.02 (0.01-0.08) K/mm3 Sodium 141 (136-145) mEq/L Potassium 3.7 (3.5-5.1) mEq/L Chloride 104 (98-107) mEq/L Carbon Dioxide 26 (21-32) mEq/L Anion Gap 14.7 (5-15) BUN 6 L (7-18) mg/dL Creatinine 1.0 (0.55-1.02) mg/dL Est Cr Clr Drug Dosing 72.68 mL/min Estimated GFR (MDRD) > 60 (>60) mL/min BUN/Creatinine Ratio 6.0 L (14-18) Glucose 130 H (74-106) mg/dL Calcium 9.0 (8.5-10.1) mg/dL Total Bilirubin 0.4 (0.2-1.0) mg/dL AST 13 L (15-37) U/L ALT 21 (14-59) U/L Alkaline Phosphatase 102 (46-116) U/L Total Protein 7.4 (6.4-8.2) g/dl Albumin 4.1 (3.4-5.0) g/dl Globulin 3.3 gm/dL Albumin/Globulin Ratio 1.2 (1-2) Lipase 85 (73-393) U/L HCG, Qual (NEGATIVE) Urine Color Yellow (Yellow) Urine Appearance Slt cloudy H (Clear) Urine pH 5.5 (5.0-8.0) Ur Specific [place] > or = 1.030 (1.005-1.030) Urine Protein Negative (Negative) Urine Glucose (UA) Negative (Negative) Urine Ketones Negative (Negative) Urine Occult Blood 2+ H (Negative) Urine Nitrite Negative (Negative) Urine Bilirubin Negative (Negative) Urine Urobilinogen 0.2 (0.2-1.0) Ur Leukocyte Esterase Negative (Negative) Urine RBC 10-20 H (0-5) /hpf Urine WBC 0-5 (0-5) /hpf Ur Squamous Epith Cells 0-5 (0-5) /hpf Amorphous Sediment Moderate H (NOT SEEN) /hpf Urine Bacteria Many H (FEW) /hpf Urine Mucus Rare (FEW) /hpf 11/25/19 Range/Units 07:35 WBC (3.98-10.04) K/mm3 RBC (3.98-5.22) M/mm3 Hgb (11.2-15.7) gm/dl Hct (34.1-44.9) % MCV (79.4-94.8) fl MCH (25.6-32.2) pg MCHC (32.2-35.5) g/dl RDW Std Deviation (36.4-46.3) fL Plt Count (182-369) K/mm3 MPV (9.4-12.3) fl Neut % (Auto) (34.0-71.1) % Lymph % (Auto) (19.3-51.7) % [place] % (Auto) (4.7-12.5) % Eos % (Auto) (0.7-5.8) Baso % (Auto) (0.1-1.2) % Neut # (Auto) (1.56-6.13) K/mm3 Lymph # (Auto) (1.18-3.74) K/mm3 [place] # (Auto) (0.24-0.36) K/mm3 Eos # (Auto) (0.04-0.36) K/mm3 Baso # (Auto) (0.01-0.08) K/mm3 Sodium (136-145) mEq/L Potassium (3.5-5.1) mEq/L Chloride (98-107) mEq/L Carbon Dioxide (21-32) mEq/L Anion Gap (5-15) BUN (7-18) mg/dL Creatinine (0.55-1.02) mg/dL Est Cr Clr Drug Dosing mL/min Estimated GFR (MDRD) (>60) mL/min BUN/Creatinine Ratio (14-18) Glucose (74-106) mg/dL Calcium (8.5-10.1) mg/dL Total Bilirubin (0.2-1.0) mg/dL AST (15-37) U/L ALT (14-59) U/L Alkaline Phosphatase (46-116) U/L Total Protein (6.4-8.2) g/dl Albumin (3.4-5.0) g/dl Globulin gm/dL Albumin/Globulin Ratio (1-2) Lipase (73-393) U/L HCG, Qual Negative (NEGATIVE) Urine Color (Yellow) Urine Appearance (Clear) Urine pH (5.0-8.0) Ur Specific [place] (1.005-1.030) Urine Protein (Negative) Urine Glucose (UA) (Negative) Urine Ketones (Negative) Urine Occult Blood (Negative) Urine Nitrite (Negative) Urine Bilirubin (Negative) Urine Urobilinogen (0.2-1.0) Ur Leukocyte Esterase (Negative) Urine RBC (0-5) /hpf Urine WBC (0-5) /hpf Ur Squamous Epith Cells (0-5) /hpf Amorphous Sediment (NOT SEEN) /hpf Urine Bacteria (FEW) /hpf Urine Mucus (FEW) /hpf Meds: Medications Generic Name Dose Route Start Last Admin Trade Name Freq PRN Reason Stop Dose Admin Sodium Chloride 1,000 mls @ 125 mls/hr 11/25/19 07:30 11/25/19 07:42 Normal Saline IV 125 mls/hr ASDIRECTED SHERI Administration Sodium Chloride 10 ml 11/25/19 07:18 11/25/19 07:35 Saline Flush FLUSH 10 ml ASDIRECTED PRN Administration Keep Vein Open Discontinued Medications Generic Name Dose Route Start Last Admin Trade Name Freq PRN Reason Stop Dose Admin Hydromorphone HCl 1 mg 11/25/19 07:19 11/25/19 07:40 Dilaudid IVPUSH 11/25/19 07:20 1 mg ONETIME ONE Administration Hydromorphone HCl 0.5 mg 11/25/19 09:24 Dilaudid IVPUSH 11/25/19 09:25 ONETIME ONE Ketorolac Tromethamine 30 mg 11/25/19 07:19 11/25/19 07:38 Toradol IVPUSH 11/25/19 07:20 30 mg ONETIME ONE Administration Ondansetron HCl 4 mg 11/25/19 07:18 11/25/19 07:36 Zofran IVPUSH 11/25/19 07:19 4 mg ONETIME ONE Administration - Re-Assessments/Exams Free Text/Narrative Re-Assessment/Exam: 11/25/19 07:27 I ordered an IV NS at 125ml/hr, zofran 4mg IV, toradol 30mg IV, dilaudid 1mg IV , labs, UA and a CT of her abdomen and pelvis without contrast to look for a kidney stone. 11/25/19 09:32 Her CBC and CMP look good. Her lipase is negative. Her HCG is negative. Her UA shows no UTI but there is blood. Her CT shows 5mm stone within the bladder. Dilated right ureter. These findings most likely represent recent obstructing right ureteral stone which has passed into the bladder. Please correlate that patient's symptoms have improved. Small nonobstructing calculus within both kidneys. No other acute findings seen on noncontrast CT study of the abdomen and pelvis. She is having more pain in her urethra now. I will give him more dilaudid 0.5mg IV and discharge her home on hydrocodone and flomax. Departure - Departure Time of Disposition: 09:40 Disposition: Home, Self-Care 01 Condition: Good Clinical Impression: Kidney stone on right side, Ureteral colic - Discharge Information *PRESCRIPTION DRUG MONITORING PROGRAM REVIEWED*: No *COPY OF PRESCRIPTION DRUG MONITORING REPORT IN PATIENT HANG: No Prescriptions: Hydrocodone/Acetaminophen [Hydrocodon-Acetaminophen 5-325] 1 - 2 each PO Q6HR PRN #20 tablet PRN Reason: Pain Tamsulosin HCl [Flomax] 0.4 mg PO DAILY #7 cap.er.24h Referrals: Candi Jefferson PA-C [Primary Care Provider] - Forms: ED Department Discharge Additional Instructions: Drink plenty of fluids. Take the flomax daily until you pass the stone. Take tylenol or motrin for pain. If that does not help, try the hydrocodone. Please return if you are worse. Sepsis Event Note - Evaluation Sepsis Screening Result: No Definite Risk - Focused Exam Vital Signs: Vital Signs Temp Pulse Resp BP Pulse Ox 11/25/19 07:10 97.3 F 76 20 135/90 98 Date Exam was Performed: 11/25/19 Time Exam was Performed: 09:32 - My Orders Last 24 Hours: My Active Orders 11/25/19 07:18 Peripheral IV Care [RC] . DIRECTED Sodium Chloride 0.9% [Saline Flush] 10 ml FLUSH ASDIRECTED PRN ED Antiemetic Medication Reflex [OM.PC] Stat Peripheral IV Insertion Adult [OM.PC] Stat 11/25/19 07:30 Sodium Chloride 0.9% [Normal Saline] 1,000 ml IV ASDIRECTED - Assessment/Plan Last 24 Hours: My Active Orders 11/25/19 07:18 Peripheral IV Care [RC] . DIRECTED Sodium Chloride 0.9% [Saline Flush] 10 ml FLUSH ASDIRECTED PRN ED Antiemetic Medication Reflex [OM.PC] Stat Peripheral IV Insertion Adult [OM.PC] Stat 11/25/19 07:30 Sodium Chloride 0.9% [Normal Saline] 1,000 ml IV ASDIRECTED
[2019-11-25] MEDS ORDERED: Sodium Chloride 0.9% 1,000 ML IV SCH (07:30)
--- NOTE | 2019-11-25 09:16 | CT ---
CT abdomen and pelvis Technique: Multiple axial sections were obtained from above the dome of the diaphragm inferiorly through the pubic symphysis. Intravenous and oral contrast not utilized. Study has been performed as a ureteral stone protocol. Comparison: No prior CT abdomen or pelvis exam. Findings: Small non-obstructing stone is noted within each kidney. Right ureter is prominent in size which occurs down to the bladder. No abnormal calcifications are seen within the ureter. There is a calcification being seen within the bladder measuring 5 mm presumably representing a previous obstructing right ureteral stone which has passed into the bladder. No other ureteral findings are seen. Visualized lung bases showed nothing acute. Noncontrast appearance of the liver appears within normal limits. Spleen appears within normal limits. Surgical clips are seen from prior cholecystectomy. Adrenal glands show no nodule. Pancreas shows no discrete abnormality. Surgical clips are seen from prior cholecystectomy. Aorta shows no aneurysm. No retroperitoneal adenopathy is seen. Surgical clips are seen off the tip of the cecum. Appendix is not seen and surgical clips most likely relate to previous cholecystectomy. No pelvic mass or adenopathy is seen. No free fluid and is identified. Bone window settings were reviewed. No acute osseous finding is appreciated. Impression: 1. 5 mm stone within the bladder. Dilated right ureter. These findings most likely represent recent obstructing right ureteral stone which has passed into the bladder. Please correlate that patient's symptoms have improved. 2. Small nonobstructing calculus within both kidneys. 3. No other acute findings seen on noncontrast CT study of the abdomen and pelvis. Diagnostic code #3 Study was dictated in MDT
[2019-11-25] MEDS ORDERED: HYDROmorphone 0.5 MG/0.5 ML Syringe IVPUSH ONE (09:24)
[2019-11-25 10:01] VITALS: BP 106/68; PULSE 85
== END 2019-11-25 10:00 | disposition home or self-care (01) ==
LOC: JD.ED 07:07
DX: N20.2 Calculus of kidney with calculus of ureter (principal); Z88.5 Allergy status to narcotic agent; Z88.8 Allergy status to other drugs, medicaments and biological substances; Z88.1 Allergy status to other antibiotic agents
CPT/HCPCS: 36415; 74176; 80053; 81001; 83690; 84703; 85025; 96361; 96374; 96375; 96376; 99284; J1170; J1885; J2405; J7030

== ENCOUNTER 2020-07-29 10:25 | Emergency (ER) | payer BC ==
[2020-07-29 10:35] VITALS: BP 122/82; PULSE 77
[2020-07-29] MEDS: Sodium Chloride 0.9% 10 ML Syringe FLUSH PRN ×2 (12:03→13:34)
--- NOTE | 2020-07-29 12:09 | EDM.PDOC ---
ED HPI GENERAL MEDICAL PROBLEM - General Chief Complaint: Chest Pain Stated Complaint: CHEST PAIN Time Seen by Provider: 07/29/20 10:37 Source of Information: Reports: Patient History Limitations: Reports: No Limitations - History of Present Illness INITIAL COMMENTS - FREE TEXT/NARRATIVE: The patient presents with left sided chest pain. This started at 0945 this morning. The patient was sitting when it started. It hurts worse to take a deep breath. She has no fever, chills, cough, congestion, runny nose, shortness of breath, abdominal pain, nausea or vomiting. She has no history of heart disease. She does not smoke. She has no history of DVT or PE. She does have Von Willebrand's disease. Onset: Sudden Duration: Hour(s): Location: Reports: Chest Quality: Reports: Sharp Severity: Moderate Improves with: Reports: Immobilization Worsens with: Reports: Breathing Associated Symptoms: Reports: Chest Pain. Denies: Confusion, Cough, Fever/Chills, Headaches, Nausea/Vomiting, Shortness of Breath Chest Pain Score (Numeric/FACES): 7 - Related Data Allergies Allergy/AdvReac Type Severity Reaction Status Date / Time amoxicillin [Amoxicillin] Allergy Itching Verified 07/29/20 10:35 codeine Allergy Pain Verified 07/29/20 10:35 aspirin AdvReac Bleeding Verified 07/29/20 10:35 Home Meds: Home Meds Desmopressin [Stimate 0.15% Nasal [place]] 1 spray NASBOTH ASDIRECTED PRN 10/02/14 [History] LORazepam [Ativan] 1 mg PO Q6H PRN #20 tab 04/08/19 [Rx] Hydrocodone/Acetaminophen [Hydrocodone-Acetamin 5-325 mg] 1 - 2 each PO Q6HR PRN #20 tablet 11/25/19 [Rx] Tamsulosin HCl [Flomax] 0.4 mg PO DAILY #7 cap.er.24h 11/25/19 [Rx] Past Medical History HEENT History: Reports: Impaired Vision Other HEENT History: wears contacts Cardiovascular History: Reports: Other (See Below) Gastrointestinal History: Reports: GERD, Hemorrhoids 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 Musculoskeletal History: Reports: Back Pain, Chronic, Other (See Below) Other Musculoskeletal History: herniated discs Neurological History: Reports: Migraines Psychiatric History: Reports: Anxiety, Bipolar, Depression Hematologic History: Reports: Other (See Below) Other Hematologic History: Von Willebrand disease - Infectious Disease History Infectious Disease History: Reports: Chicken Pox - Past Surgical History HEENT Surgical History: Reports: Tonsillectomy, Other (See Below) Other HEENT Surgeries/Procedures: tooth extraction GI Surgical History: Reports: Appendectomy, Cholecystectomy, Other (See Below) Female Surgical History: Reports: Cystectomy, D&C, LEEP Musculoskeletal Surgical History: Reports: Shoulder Surgery Social & Family History - Family History Family Medical History: No Pertinent Family History - Tobacco Use Tobacco Use Status *Q: Never Tobacco User - Caffeine Use Caffeine Use: Reports: Coffee, Soda - Living Situation & Occupation Living situation: Reports: with Significant Other Occupation: Employed ED ROS GENERAL - Review of Systems Review Of Systems: See Below Constitutional: Reports: No Symptoms HEENT: Reports: No Symptoms Respiratory: Reports: No Symptoms Cardiovascular: Reports: Chest Pain Endocrine: Reports: No Symptoms GI/Abdominal: Reports: No Symptoms : Reports: No Symptoms Musculoskeletal: Reports: No Symptoms Skin: Reports: No Symptoms Neurological: Reports: No Symptoms ED EXAM, GENERAL - Physical Exam Exam: See Below Exam Limited By: No Limitations General Appearance: Alert, No Apparent Distress Ears: Normal External Exam Nose: Normal Inspection Head: Atraumatic, Normocephalic Neck: Normal Inspection Respiratory/Chest: No Respiratory Distress, Lungs Clear, Normal Breath Sounds Cardiovascular: Regular Rate, Rhythm, No Edema, No Murmur GI/Abdominal: Soft, Non-Tender, No Organomegaly, No Mass Extremities: Normal Inspection Neurological: Alert, Oriented, No Motor/Sensory Deficits #1 Interpretation EKG Date: 07/29/20 Time: 11:12 Rhythm: NSR Rate (Beats/Min): 74 [place]: Normal P-Wave: Present QRS: Normal ST-T: Normal QT: Normal Course - Vital Signs Last Recorded V/S: Last Vital Signs Temp 97.8 F 07/29/20 10:33 Pulse 77 07/29/20 10:33 Resp 16 07/29/20 10:33 BP 122/82 07/29/20 10:33 Pulse Ox 100 07/29/20 10:33 - Orders/Labs/Meds Orders: Active Orders 24 hr Category Date Time Status Cardiac Monitoring [RC] . DIRECTED Care 07/29/20 10:50 Active EKG Documentation Completion [RC] STAT Care 07/29/20 10:51 Active Peripheral IV Care [RC] . DIRECTED Care 07/29/20 11:41 Active Sodium Chloride 0.9% [Saline Flush] Med 07/29/20 11:40 Active 10 ml FLUSH ASDIRECTED PRN Peripheral IV Insertion Adult [OM.PC] Routine Oth 07/29/20 11:40 Ordered Medication Orders Sodium Chloride (Saline Flush) 10 ml FLUSH ASDIRECTED PRN PRN Reason: Keep Vein Open Last Admin: 07/29/20 12:03 Dose: 10 ml Documented by: HUMBLE Labs: Laboratory Tests 07/29/20 07/29/20 07/29/20 Range/Units 11:05 11:05 11:05 WBC 6.45 (3.98-10.04) K/mm3 RBC 4.21 (3.98-5.22) M/mm3 Hgb 13.3 (11.2-15.7) gm/dl Hct 39.5 (34.1-44.9) % MCV 93.8 (79.4-94.8) fl MCH 31.6 (25.6-32.2) pg MCHC 33.7 (32.2-35.5) g/dl RDW Std Deviation 42.2 (36.4-46.3) fL Plt Count 272 (182-369) K/mm3 MPV 10.2 (9.4-12.3) fl Neut % (Auto) 56.8 (34.0-71.1) % Lymph % (Auto) 33.8 (19.3-51.7) % [place] % (Auto) 8.1 (4.7-12.5) % Eos % (Auto) 0.8 (0.7-5.8) Baso % (Auto) 0.3 (0.1-1.2) % Neut # (Auto) 3.67 (1.56-6.13) K/mm3 Lymph # (Auto) 2.18 (1.18-3.74) K/mm3 [place] # (Auto) 0.52 H (0.24-0.36) K/mm3 Eos # (Auto) 0.05 (0.04-0.36) K/mm3 Baso # (Auto) 0.02 (0.01-0.08) K/mm3 D-Dimer, Quantitative 0.54 H (0.19-0.50) mg/L Sodium 141 (136-145) mEq/L Potassium 3.4 L (3.5-5.1) mEq/L Chloride 106 (98-107) mEq/L Carbon Dioxide 26 (21-32) mEq/L Anion Gap 12.4 (5-15) BUN 9 (7-18) mg/dL Creatinine 1.1 H (0.55-1.02) mg/dL Est Cr Clr Drug Dosing 65.46 mL/min Estimated GFR (MDRD) 57 (>60) mL/min BUN/Creatinine Ratio 8.2 L (14-18) Glucose 93 (74-106) mg/dL Calcium 8.8 (8.5-10.1) mg/dL Total Bilirubin 0.3 (0.2-1.0) mg/dL AST 14 L (15-37) U/L ALT 18 (14-59) U/L Alkaline Phosphatase 97 (46-116) U/L Troponin I < 0.017 (0.00-0.056) ng/mL Total Protein 7.0 (6.4-8.2) g/dl Albumin 3.9 (3.4-5.0) g/dl Globulin 3.1 gm/dL Albumin/Globulin Ratio 1.3 (1-2) Meds: Medications Generic Name Dose Route Start Last Admin Trade Name Freq PRN Reason Stop Dose Admin Sodium Chloride 10 ml 07/29/20 11:40 07/29/20 12:03 Saline Flush FLUSH 10 ml ASDIRECTED PRN Administration Keep Vein Open Discontinued Medications Generic Name Dose Route Start Last Admin Trade Name Freq PRN Reason Stop Dose Admin Iopamidol 100 ml 07/29/20 12:41 [id number] (76%) IVPUSH 07/29/20 12:42 ONETIME ONE - Re-Assessments/Exams Free Text/Narrative Re-Assessment/Exam: 07/29/20 12:55 I ordered an EKG, CXR and labs. Her CXR shows a NSR with no acute changes. Her CXR looks good. Her CBC looks good. Her D-dimer was slightly elevated at 0.54. I ordered an IV saline lock and a CT angio of her chest. Her creatinine was 1.1. Her troponin is negative. I am waiting on he CT angio. 07/29/20 13:[address] angio shows no PE. She feels better. I feel this is pleurisy. I will discharge her home. Departure - Departure Time of Disposition: 13:25 Disposition: Home, Self-Care 01 Condition: Good Clinical Impression: Pleurisy Referrals: Candi Jefferson PA-C [Primary Care Provider] - 1 Week Forms: ED Department Discharge Additional Instructions: Take tylenol for pain. Follow up with your doctor within a week. Please return if you are worse. Sepsis Event Note (ED) - Evaluation Sepsis Screening Result: No Definite Risk - Focused Exam Vital Signs: Vital Signs Temp Pulse Resp BP Pulse Ox 07/29/20 10:33 97.8 F 77 16 122/82 100 - My Orders Last 24 Hours: My Active Orders 07/29/20 10:50 Cardiac Monitoring [RC] . DIRECTED 07/29/20 10:51 EKG Documentation Completion [RC] STAT 07/29/20 11:40 Sodium Chloride 0.9% [Saline Flush] 10 ml FLUSH ASDIRECTED PRN Peripheral IV Insertion Adult [OM.PC] Routine 07/29/20 11:41 Peripheral IV Care [RC] . DIRECTED - Assessment/Plan Last 24 Hours: My Active Orders 07/29/20 10:50 Cardiac Monitoring [RC] . DIRECTED 07/29/20 10:51 EKG Documentation Completion [RC] STAT 07/29/20 11:40 Sodium Chloride 0.9% [Saline Flush] 10 ml FLUSH ASDIRECTED PRN Peripheral IV Insertion Adult [OM.PC] Routine 07/29/20 11:41 Peripheral IV Care [RC] . DIRECTED
--- NOTE | 2020-07-29 12:33 | CR ---
Chest: 2 views of the chest were obtained. Comparison: Previous CT angiogram of the chest dated 04/27/18, no prior chest x-ray is available. Findings: Heart size and mediastinum are normal. Lungs and pleural surfaces show no acute abnormality. Prior right shoulder surgery is seen. Surgical surgical clips are seen with the upper abdomen compatible with prior cholecystectomy. Bony structures are otherwise unremarkable. Impression: 1. Findings believed to be incidental. 2. Nothing acute is appreciated on 2 view chest x-ray. Diagnostic code #2
[2020-07-29] MEDS ORDERED: Iopamidol 755 Mg/ML 100 ML Bottle IVPUSH ONE (12:41)
--- NOTE | 2020-07-29 13:14 | CT ---
CT chest Technique: Multiple axial sections through the chest were obtained. Intravenous contrast was utilized. Study has been performed as a pulmonary angiogram protocol. Reconstructed coronal and sagittal images were obtained. Findings: Pulmonary arteries are well opacified. There are no filling defects being seen to indicate pulmonary embolism. Mediastinum and hilar region show no discrete adenopathy or mass. Heart is not enlarged. No pericardial thickening is appreciated. Previous cholecystectomy is noted. Lung window settings were reviewed. Lungs appear clear. No acute parenchymal change is seen within either lung. Bone window settings were reviewed. No acute osseous finding is appreciated. Impression: 1. No findings of pulmonary embolism. 2. Prior cholecystectomy. 3. Nothing acute is appreciated on CT study of the chest. Diagnostic code #1
== END 2020-07-29 13:40 | disposition home or self-care (01) ==
LOC: JD.ED 10:25
DX: R09.1 Pleurisy (principal); R79.1 Abnormal coagulation profile; F41.9 Anxiety disorder, unspecified; F31.9 Bipolar disorder, unspecified; Z79.899 Other long term (current) drug therapy; Z88.1 Allergy status to other antibiotic agents; Z88.5 Allergy status to narcotic agent
CPT/HCPCS: 36415; 71046; 71275; 80053; 84484; 85025; 85379; 93005; 99285; Q9967; 93010; 99284

== ENCOUNTER 2021-03-08 11:42 | Emergency (ER) | payer BC ==
[2021-03-08 11:54] VITALS: BP 134/82; PULSE 67
--- NOTE | 2021-03-08 13:13 | EDM.PDOC ---
ED HPI GENERAL MEDICAL PROBLEM - General Chief Complaint: General Stated Complaint: SEND FROM [facility], BRUSING ON BODY Time Seen by Provider: 03/08/21 11:58 Source of Information: Reports: Patient, RN Notes Reviewed - History of Present Illness INITIAL COMMENTS - FREE TEXT/NARRATIVE: 35 yr old female took a blow from a board 2 days ago cutting the wood with a table saw. The wood kicked back hitting her abd. Has localized tenderness and now some visible bruising. Of concern to her she now has bruising of her L calf and her R calf. Not aware of any injury to either calf muscle. Hx of mild Von Willebrand's disease. Had a lot of nose bleeds when she was young. No major bruising or bleeding problems as an adult. Lower Abdomen Pain Score (Numeric/FACES): 1 - Related Data Allergies Allergy/AdvReac Type Severity Reaction Status Date / Time amoxicillin [Amoxicillin] Allergy Severe Rash Verified 03/08/21 11:54 codeine Allergy Severe Itching Verified 03/08/21 11:54 aspirin AdvReac Severe Bleeding Verified 03/08/21 11:54 Home Meds: Home Meds Desmopressin [Stimate 0.15% Nasal [place]] 1 spray NASBOTH ASDIRECTED PRN 10/02/14 [History] ALPRAZolam [Xanax] 0.5 mg PO QID PRN 03/08/21 [History] Escitalopram [Lexapro] 20 mg PO DAILY 03/08/21 [History] Ketorolac [Toradol] 1 mg PO DAILY PRN 03/08/21 [History] Phentermine HCl 1 tab PO DAILY 03/08/21 [History] Topiramate 50 mg PO DAILY 03/08/21 [History] buPROPion HCL [Bupropion Xl] 150 mg PO DAILY 03/08/21 [History] Past Medical History HEENT History: Reports: Impaired Vision Other HEENT History: wears contacts Cardiovascular History: Reports: Other (See Below) Gastrointestinal History: Reports: GERD, Hemorrhoids 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 PICKER History: cone biopsy with LEEP Musculoskeletal History: Reports: Back Pain, Chronic, Other (See Below) Other Musculoskeletal History: herniated discs Neurological History: Reports: Migraines Psychiatric History: Reports: Anxiety, Bipolar, Depression Hematologic History: Reports: Other (See Below) Other Hematologic History: Von Willebrand disease - Infectious Disease History Infectious Disease History: Reports: Chicken Pox - Past Surgical History HEENT Surgical History: Reports: Tonsillectomy GI Surgical History: Reports: Appendectomy, Cholecystectomy Female Surgical History: Reports: Cystectomy, D&C, LEEP Musculoskeletal Surgical History: Reports: Shoulder Surgery Social & Family History - Family History Family Medical History: No Pertinent Family History - Tobacco Use Tobacco Use Status *Q: Never Tobacco User - Caffeine Use Caffeine Use: Reports: Energy Drinks - Recreational Drug Use Recreational Drug Use: No - Living Situation & Occupation Living situation: Reports: with Significant Other Occupation: Employed ED ROS GENERAL - Review of Systems Review Of Systems: See Below Constitutional: Denies: Fever, Chills, Diaphoresis HEENT: Reports: No Symptoms Respiratory: Denies: Shortness of Breath Cardiovascular: Denies: Chest Pain GI/Abdominal: Reports: Abdominal Pain (mild discomfort area of bruising) Musculoskeletal: Denies: Leg Pain Skin: Reports: Bruising (bilat post calves L more than right) Neurological: Reports: No Symptoms. Denies: Dizziness ED EXAM, GENERAL - Physical Exam Exam: See Below General Appearance: Alert, No Apparent Distress Eye Exam: Bilateral Eye: PERRL Head: Atraumatic Neck: Supple Respiratory/Chest: No Respiratory Distress, Lungs Clear, Normal Breath Sounds Cardiovascular: Regular Rate, Rhythm GI/Abdominal: Soft, Other (Small area of horizontal bruising R mid abd with localized tenderness over the bruising, LUQ and remainder of abd nontender). No: Guarding, Rebound Back Exam: No: CVA Tenderness (L), CVA Tenderness (R) Extremities: Other (Moderate sized bruise L post calf and small bruise R post calf, very minimal tenderness and swelling) Neurological: Alert, Oriented, No Motor/Sensory Deficits Skin Exam: Warm, Dry Course - Vital Signs Last Recorded V/S: Last Vital Signs Temp 96.7 F L 03/08/21 11:50 Pulse 67 03/08/21 11:50 Resp 16 03/08/21 11:50 BP 134/82 03/08/21 11:50 Pulse Ox 100 03/08/21 11:50 Orthostatic Blood Pressure [ 118/77 Standing] Orthostatic Blood Pressure [ 113/77 Supine] - Orders/Labs/Meds Labs: Laboratory Tests 03/08/21 Range/Units 12:37 WBC 6.87 (3.98-10.04) K/mm3 RBC 4.08 (3.98-5.22) M/mm3 Hgb 12.9 (11.2-15.7) gm/dl Hct 38.2 (34.1-44.9) % MCV 93.6 (79.4-94.8) fl MCH 31.6 (25.6-32.2) pg MCHC 33.8 (32.2-35.5) g/dl RDW Std Deviation 42.8 (36.4-46.3) fL Plt Count 274 (182-369) K/mm3 MPV 9.3 L (9.4-12.3) fl Neut % (Auto) 59.9 (34.0-71.1) % Lymph % (Auto) 33.8 (19.3-51.7) % [place] % (Auto) 5.2 (4.7-12.5) % Eos % (Auto) 0.7 (0.7-5.8) Baso % (Auto) 0.3 (0.1-1.2) % Neut # (Auto) 4.11 (1.56-6.13) K/mm3 Lymph # (Auto) 2.32 (1.18-3.74) K/mm3 [place] # (Auto) 0.36 (0.24-0.36) K/mm3 Eos # (Auto) 0.05 (0.04-0.36) K/mm3 Baso # (Auto) 0.02 (0.01-0.08) K/mm3 - Re-Assessments/Exams Free Text/Narrative Re-Assessment/Exam: 03/08/21 14:01 CBC is good, Ortho's are good. Discharge instr. as documented. Departure - Departure Time of Disposition: 13:10 Disposition: Home, Self-Care 01 Condition: Fair Clinical Impression: Bruise of muscle Contusion, abdominal wall Qualifiers: Encounter type: initial encounter Qualified Code(s): S30.1XXA - Contusion of abdominal wall, initial encounter - Discharge Information Referrals: Candi Jefferson PA-C [Primary Care Provider] - Forms: ED Department Discharge Additional Instructions: Drink plenty of water to maintain hydration. Avoid excessive heat exposure for the next few days. Follow up clinic as needed. Return to ED as needed if symptoms worsening in any way. Sepsis Event Note (ED) - Evaluation Sepsis Screening Result: No Definite Risk - Focused Exam Vital Signs: Vital Signs Temp Pulse Resp BP Pulse Ox 03/08/21 11:50 96.7 F L 67 16 134/82 100
== END 2021-03-08 13:30 | disposition home or self-care (01) ==
LOC: JD.ED 11:42
DX: S30.1XXA Contusion of abdominal wall, initial encounter (principal); S80.812A Abrasion, left lower leg, initial encounter; S80.811A Abrasion, right lower leg, initial encounter; G43.909 Migraine, unspecified, not intractable, without status migrainosus; Z88.0 Allergy status to penicillin; Z88.5 Allergy status to narcotic agent; Z88.6 Allergy status to analgesic agent; Z79.899 Other long term (current) drug therapy; W27.0XXA Contact with workbench tool, initial encounter
CPT/HCPCS: 36415; 85025; 99282; 99284

== ENCOUNTER 2021-07-01 09:35 | Emergency (ER) | payer BC ==
[2021-07-01 09:45] VITALS: BP 126/89; PULSE 84
--- NOTE | 2021-07-01 10:26 | EDM.PDOC ---
ED HPI GENERAL MEDICAL PROBLEM - General Chief Complaint: Neurological Problem Stated Complaint: [facility] Time Seen by Provider: 07/01/21 10:26 - History of Present Illness INITIAL COMMENTS - FREE TEXT/NARRATIVE: 35-year-old female brought in by EMS with severe dizziness. About the time the patient woke up she noticed severe dizziness. This was with her still lying down there was no change in position. Patient has a history of migraines but this is a lot different and she really does not have much of a headache at this time she has marked dizziness minimal nausea no vomiting. Patient does not have a history of vertigo. She has not noticed any weakness in any of her extremities or altered sensation other than the dizziness. Patient denies any possibility of , her had a vasectomy. Headache Pain Score (Numeric/FACES): 3 - Related Data Allergies Allergy/AdvReac Type Severity Reaction Status Date / Time amoxicillin [Amoxicillin] Allergy Intermediate Rash Verified 07/01/21 09:45 codeine Allergy Mild Itching Verified 07/01/21 09:45 aspirin AdvReac Intermediate Bleeding Verified 07/01/21 09:45 Home Meds: Home Meds Desmopressin [Stimate 0.15% Nasal [place]] 1 spray NASBOTH ASDIRECTED PRN 10/02/14 [History] ALPRAZolam [Xanax] 0.5 mg PO QID PRN 03/08/21 [History] Escitalopram [Lexapro] 20 mg PO DAILY 03/08/21 [History] Phentermine HCl 1 tab PO DAILY 03/08/21 [History] Topiramate 50 mg PO DAILY 03/08/21 [History] buPROPion HCL [Bupropion Xl] 150 mg PO DAILY 03/08/21 [History] Past Medical History HEENT History: Reports: Impaired Vision Other HEENT History: wears contacts Cardiovascular History: Reports: Other (See Below) Gastrointestinal History: Reports: GERD, Hemorrhoids 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 LOAD 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 History: cone biopsy with LEEP Musculoskeletal History: Reports: Back Pain, Chronic, Other (See Below) Other Musculoskeletal History: herniated discs Neurological History: Reports: Migraines Psychiatric History: Reports: Anxiety, Bipolar, Depression Hematologic History: Reports: Other (See Below) Other Hematologic History: Von Willebrand disease - Infectious Disease History Infectious Disease History: Reports: Chicken Pox - Past Surgical History HEENT Surgical History: Reports: Oral Surgery, Tonsillectomy Other HEENT Surgeries/Procedures: tooth extraction GI Surgical History: Reports: Appendectomy, Cholecystectomy Female Surgical History: Reports: Cystectomy, D&C, LEEP Musculoskeletal Surgical History: Reports: Shoulder Surgery Social & Family History - Family History Family Medical History: No Pertinent Family History - Tobacco Use Tobacco Use Status *Q: Never Tobacco User - Caffeine Use Caffeine Use: Reports: None - Recreational Drug Use Recreational Drug Use: Yes Drug Use in Last 12 Months: Yes Recreational Drug Type: Reports: Marijuana/Hashish - Living Situation & Occupation Living situation: Reports: with Significant Other Occupation: Employed ED ROS GENERAL - Review of Systems Review Of Systems: See Below Constitutional: Reports: No Symptoms HEENT: Reports: No Symptoms, Other (Severe dizziness) Respiratory: Reports: No Symptoms Cardiovascular: Reports: No Symptoms Endocrine: Reports: No Symptoms GI/Abdominal: Reports: No Symptoms : Reports: No Symptoms Musculoskeletal: Reports: No Symptoms Skin: Reports: No Symptoms Neurological: Reports: Dizziness ED EXAM, GENERAL - Physical Exam Exam: See Below Exam Limited By: No Limitations General Appearance: Alert, No Apparent Distress Eye Exam: Bilateral Eye: EOMI, Normal Inspection, PERRL Ears: Normal External Exam, Normal Canal, Hearing Grossly Normal, Normal TMs Nose: Normal Inspection, Normal Mucosa, No Blood Throat/Mouth: Normal Inspection, Normal Lips, Normal Teeth, Normal Gums, Normal Oropharynx, Normal Voice, No Airway Compromise Head: Atraumatic, Normocephalic Neck: Normal Inspection, Supple, Non-Tender, Full Range of Motion. No: Lymphadenopathy (L), Lymphadenopathy (R) Respiratory/Chest: No Respiratory Distress, Lungs Clear, Normal Breath Sounds Cardiovascular: Regular Rate, Rhythm, No Edema, No Murmur Extremities: Normal Inspection, No Pedal Edema Neurological: Alert, Oriented, Normal Cognition, Other (The patient seems to be dizzy all the time I set her up she is dizzy looking right or left the intensity the dizziness does not change) Psychiatric: Normal Affect, Normal Mood Course - Vital Signs Last Recorded V/S: Last Vital Signs Temp 36.6 C 07/01/21 09:41 Pulse 84 07/01/21 09:41 Resp 16 07/01/21 09:41 BP 126/89 07/01/21 09:41 Pulse Ox 100 07/01/21 09:41 - Orders/Labs/Meds Labs: Laboratory Tests 07/01/21 07/01/21 Range/Units 11:16 11:16 WBC 7.15 (3.98-10.04) K/mm3 RBC 4.21 (3.98-5.22) M/mm3 Hgb 13.1 (11.2-15.7) gm/dl Hct 39.6 (34.1-44.9) % MCV 94.1 (79.4-94.8) fl MCH 31.1 (25.6-32.2) pg MCHC 33.1 (32.2-35.5) g/dl RDW Std Deviation 41.8 (36.4-46.3) fL Plt Count 271 (182-369) K/mm3 MPV 9.6 (9.4-12.3) fl Neut % (Auto) 62.0 (34.0-71.1) % Lymph % (Auto) 29.7 (19.3-51.7) % [place] % (Auto) 7.3 (4.7-12.5) % Eos % (Auto) 0.6 L (0.7-5.8) Baso % (Auto) 0.3 (0.1-1.2) % Neut # (Auto) 4.44 (1.56-6.13) K/mm3 Lymph # (Auto) 2.12 (1.18-3.74) K/mm3 [place] # (Auto) 0.52 H (0.24-0.36) K/mm3 Eos # (Auto) 0.04 (0.04-0.36) K/mm3 Baso # (Auto) 0.02 (0.01-0.08) K/mm3 Sodium 141 (136-145) mEq/L Potassium 3.7 (3.5-5.1) mEq/L Chloride 105 (98-107) mEq/L Carbon Dioxide 27 (21-32) mEq/L Anion Gap 12.7 (5-15) BUN 7 (7-18) mg/dL Creatinine 0.8 (0.55-1.02) mg/dL Est Cr Clr Drug Dosing 89.16 mL/min Estimated GFR (MDRD) > 60 (>60) mL/min BUN/Creatinine Ratio 8.8 L (14-18) Glucose 90 (70-99) mg/dL Calcium 8.2 L (8.5-10.1) mg/dL Total Bilirubin 0.6 (0.2-1.0) mg/dL AST 15 (15-37) U/L ALT 22 (14-59) U/L Alkaline Phosphatase 82 (46-116) U/L Total Protein 6.6 (6.4-8.2) g/dl Albumin 3.7 (3.4-5.0) g/dl Globulin 2.9 gm/dL Albumin/Globulin Ratio 1.3 (1-2) Meds: Medications Discontinued Medications Generic Name Dose Route Start Last Admin Trade Name Marvinq PRN Reason Stop Dose Admin Meclizine HCl 25 mg 07/01/21 10:43 07/01/21 11:07 Meclizine 25 Mg Tab.Chew PO 07/01/21 10:44 25 mg ONETIME ONE Administration - Re-Assessments/Exams Free Text/Narrative Re-Assessment/Exam: 07/01/21 14:[address] is negative for any acute changes. We are able to get the patient in for an MRI and the results of this are pending at this time. 07/01/21 16:03 Had the MRI and this does not show anything acute no acute diffusion abnormalities were noted. At this point patient is still doing well we will discharge home with instructions to use meclizine only if absolutely necessary, and not to drive. She will follow up with her primary healthcare provider in 2 days discuss physical therapy and possible audiology evaluation. Departure - Departure Time of Disposition: 16:04 Disposition: Home, Self-Care 01 Clinical Impression: Dizziness - Discharge Information Instructions: Vertigo Referrals: PCP,None [Primary Care Provider] - Forms: ED Department Discharge Additional Instructions: Return to the emergency room with any questions problems or worsening symptoms. Follow-up with your regular healthcare provider in 2 days as scheduled discuss the benefits of physical therapy with your condition and also a possible audiology evaluation. 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 As we discussed do not drive until this condition has resolved. Use caution with walking around and change of position always be able to hang onto something to help with your positional senses. Sepsis Event Note (ED) - Evaluation Sepsis Screening Result: No Definite Risk - Focused Exam Vital Signs: Vital Signs Temp Pulse Resp BP Pulse Ox 07/01/21 09:41 36.6 C 84 16 126/89 100
--- NOTE | 2021-07-01 11:15 | CT ---
Head CT Technique: Multiple axial sections through the brain were obtained. Intravenous contrast was not utilized. Reconstructed coronal and sagittal images were obtained. Barriers: Priors head CT study of 04/27/18. Findings: Ventricles along with basal cisterns and sulci over the convexities appear within normal limits for the patient's age. No abnormal parenchymal densities are seen. No evidence of intracranial hemorrhage is seen. No midline shift or mass-effect is seen. Bone window settings were reviewed. Visualized mastoid sinuses and paranasal sinuses show nothing acute. No acute calvarial abnormality is seen. Impression: 1. Nothing acute is seen on noncontrast head CT exam. No appreciable change is seen from previous study. Diagnostic code #1
--- NOTE | 2021-07-01 15:42 | MR ---
MRI brain Technique: T1 sagittal; T2, T2 FLAIR, T1 and diffusion axial; T2 thin gradient echo axial images through the brain stem; T1 FLAIR coronal images were obtained. Comparison: Prior head CT study performed earlier on the same day (10:51 AM). Findings: Ventricles along with basal cisterns and sulci over the convexities are within normal limits for the patient's age. No abnormal signal is seen within the brain parenchyma. No midline shift or mass-effect is seen. Normal signal void is seen within the major cerebral arteries within the skull base. Contents of the internal auditory canals appear normal. No acute diffusion abnormalities are seen. Visualized paranasal sinuses and mastoid sinuses show nothing acute. Impression: 1. No abnormality is identified on MRI study of the brain. Diagnostic code #1
== END 2021-07-01 16:18 | disposition home or self-care (01) ==
LOC: JD.ED 09:35
DX: R42 Dizziness and giddiness (principal); G43.909 Migraine, unspecified, not intractable, without status migrainosus; Z88.0 Allergy status to penicillin; Z88.5 Allergy status to narcotic agent; Z88.8 Allergy status to other drugs, medicaments and biological substances; Z79.899 Other long term (current) drug therapy
CPT/HCPCS: 36415; 70450; 70450-26; 70551; 70551-26; 80053; 85025; 99284; 99285-25; A9270-GY

== ENCOUNTER 2022-09-10 09:53 | Emergency (ER) | payer BC ==
[2022-09-10 10:16] VITALS: BP 131/86; PULSE 74
[2022-09-10] MEDS ORDERED: Ondansetron 4 MG/2 ML SDV IVPUSH ONE (10:23)
[2022-09-10] MEDS ORDERED: HYDROmorphone 1 MG/ML Syringe IVPUSH STA (10:23)
[2022-09-10] MEDS ORDERED: Iopamidol 755 Mg/ML 100 ML Bottle IVPUSH ONE (10:27)
[2022-09-10] MEDS ORDERED: Sodium Chloride 0.9% 10 ML Syringe FLUSH PRN (10:27)
[2022-09-10] MEDS ORDERED: Sodium Chloride 0.9% 1,000 ML IV SCH (10:30)
[2022-09-10] MEDS: Sodium Chloride 0.9% 10 ML Syringe FLUSH PRN ×2 (10:44→11:03)
[2022-09-10 11:09] LABS: ESTIMATED GFR 86 mL/min (>60)
== END 2022-09-10 12:20 | disposition home or self-care (01) ==
LOC: JD.ED 09:53
DX: N83.209 Unspecified ovarian cyst, unspecified side (principal); B37.31 Acute candidiasis of vulva and vagina; K21.9 Gastro-esophageal reflux disease without esophagitis; Z88.0 Allergy status to penicillin; Z88.5 Allergy status to narcotic agent; Z88.8 Allergy status to other drugs, medicaments and biological substances; Z79.899 Other long term (current) drug therapy
CPT/HCPCS: 36415; 74177; 80053; 81001; 83690; 85025; 86140; 87086; 96361; 96374; 96375; 99284; J1170; J2405; J3490; J7030; Q9967

== ENCOUNTER 2023-07-09 18:16 | Emergency (ER) | payer BC ==
[2023-07-09] MEDS ORDERED: Sodium Chloride 0.9% 10 ML Syringe FLUSH PRN (18:40)
[2023-07-09] MEDS ORDERED: Ondansetron 4 MG/2 ML SDV IVPUSH ONE (18:40)
[2023-07-09] MEDS ORDERED: Sodium Chloride 0.9% 1,000 ML IV STA (18:40)
[2023-07-09 18:47] LABS: APPEARANCE,URINE CLEAR (Clear); BILIRUBIN,URINE 1+ (Negative); COLOR,URINE YELLOW (Yellow); GLUCOSE,URINE NEGATIVE (Negative); KETONES,URINE 3+ (Negative); LEUKOCYTE ESTERASE,URINE NEGATIVE (Negative); NITRITE,URINE NEGATIVE (Negative); OCCULT BLOOD,URINE NEGATIVE (Negative); PH,URINE 5.5 (5.0-8.0); PROTEIN,URINE TRACE (Negative); UROBILINOGEN,URINE 0.2 (0.2-1.0)
[2023-07-09 18:53] LABS: BASOPHILS PERCENT AUTO 0.2 % (0.0-1.0); HEMATOCRIT 41.6 % (37.0-47.0); HEMOGLOBIN 14.6 gm/dl (12.0-16.0); IMMATURE GRAN ABSOLUTE AUTO 0.02 K/mm3 (0.00-0.05); IMMATURE GRAN PERCENT AUTO 0.2 % (0.0-0.4); LYMPHOCYTES ABSOLUTE AUTO 0.9 K/mm3 (1.0-4.8); LYMPHOCYTES PERCENT AUTO 10.7 % (24.0-44.0); MEAN CORPUSCULAR HEMOGLOBIN 33.3 pg (28.0-32.0); MEAN CORPUSCULAR HGB CONC 35.1 g/dl (32.0-36.0); MEAN CORPUSCULAR VOLUME 94.8 fl (83.0-99.0); MEAN PLATELET VOLUME 10.1 fl (9.4-12.3); MONOCYTES ABSOLUTE AUTO 0.4 K/mm3 (0.0-0.8); NEUTROPHILS ABSOLUTE AUTO 7.5 K/mm3 (1.8-7.7); NEUTROPHILS PERCENT AUTO 84.9 % (41.0-71.0); PLATELET COUNT,PLT 204 K/mm3 (150-400); RED BLOOD CELL COUNT 4.39 M/mm3 (4.10-5.30); WHITE BLOOD CELL COUNT,WBC 8.79 K/mm3 (3.9-11.3)
[2023-07-09 18:54] LABS: BACTERIA,URINE FEW /hpf (FEW); MUCUS,URINE MANY /hpf (FEW); RBC,URINE 0-5 /hpf (0-5); WBC,URINE 0-5 /hpf (0-5)
[2023-07-09 19:15] LABS: A/G RATIO 1.2 (1-2); ALBUMIN 3.9 g/dl (3.4-5.0); ANION GAP 17.5 (5-15); BILIRUBIN TOTAL 1.1 mg/dL (0.2-1.0); BUN/CREATININE RATIO 11.8 (14-18); C-REACTIVE PROTEIN 3.1 mg/dL (<1.0); CALCIUM 8.9 mg/dL (8.5-10.1); CREATININE 1.1 mg/dL (0.55-1.02); EST CRCL DRUG DOSING (CG) 63.62 mL/min; POTASSIUM,K 3.5 mEq/L (3.5-5.1); PROTEIN TOTAL,TP 7.1 g/dl (6.4-8.2)
[2023-07-09] MEDS ORDERED: Ketorolac 30 MG/ML SDV IVPUSH ONE (19:27)
[2023-07-09 21:12] VITALS: BP 99/60; PULSE 90
== END 2023-07-09 21:05 | disposition home or self-care (01) ==
LOC: JD.ED 18:16
DX: A08.4 Viral intestinal infection, unspecified (principal); Z88.0 Allergy status to penicillin; Z88.5 Allergy status to narcotic agent; Z91.030 Bee allergy status; Z88.8 Allergy status to other drugs, medicaments and biological substances
CPT/HCPCS: 36415; 80053; 81001; 84703; 85025; 86140; 96361; 96374; 96375; 99284; J1885; J2405; J7030

== ENCOUNTER 2024-03-30 19:51 | Emergency (ER) | payer BC ==
[2024-03-30] MEDS ORDERED: Sodium Chloride 0.9% 10 ML Syringe FLUSH PRN (20:39)
[2024-03-30 20:46] LABS: BASOPHILS PERCENT AUTO 0.3 % (0.0-1.0); EOSINOPHILS PERCENT AUTO 0.2 % (0.0-6.0); HEMATOCRIT 38.1 % (37.0-47.0); IMMATURE GRAN ABSOLUTE AUTO 0.04 K/mm3 (0.00-0.05); IMMATURE GRAN PERCENT AUTO 0.4 % (0.0-0.4); LYMPHOCYTES PERCENT AUTO 20.5 % (24.0-44.0); MEAN CORPUSCULAR HEMOGLOBIN 32.5 pg (28.0-32.0); MEAN CORPUSCULAR HGB CONC 34.1 g/dl (32.0-36.0); MEAN CORPUSCULAR VOLUME 95.3 fl (83.0-99.0); MEAN PLATELET VOLUME 9.7 fl (9.4-12.3); MONOCYTES ABSOLUTE AUTO 0.5 K/mm3 (0.0-0.8); MONOCYTES PERCENT AUTO 5.3 % (0.0-8.0); NEUTROPHILS ABSOLUTE AUTO 7.2 K/mm3 (1.8-7.7); NEUTROPHILS PERCENT AUTO 73.3 % (41.0-71.0); PLATELET COUNT,PLT 232 K/mm3 (150-400); WHITE BLOOD CELL COUNT,WBC 9.81 K/mm3 (3.9-11.3)
[2024-03-30] MEDS: Acetaminophen 325 MG Tab PO ONE (20:51)
[2024-03-30] MEDS: Sodium Chloride 0.9% 1,000 ML IV ONE (20:52)
[2024-03-30] MEDS: diphenhydrAMINE 50 MG/ML SDV IVPUSH ONE (20:53)
[2024-03-30] MEDS: Sodium Chloride 0.9% 10 ML Syringe FLUSH PRN (20:53)
[2024-03-30] MEDS: Metoclopramide 10 MG/2 ML SDV IVPUSH ONE (20:53)
[2024-03-30 21:13] LABS: A/G RATIO 1.5 (1-2); ALBUMIN 4.1 g/dl (3.4-5.0); ANION GAP 10.7 (5-15); BILIRUBIN TOTAL 0.6 mg/dL (0.2-1.0); BUN/CREATININE RATIO 11.1 (14-18); CALCIUM 9.2 mg/dL (8.5-10.1); CREATININE 0.9 mg/dL (0.55-1.02); EST CRCL DRUG DOSING (CG) 80.12 mL/min; POTASSIUM,K 3.7 mEq/L (3.5-5.1); PROTEIN TOTAL,TP 6.9 g/dl (6.4-8.2)
[2024-03-30 23:33] VITALS: BP 112/75; PULSE 71
== END 2024-03-30 23:33 | disposition home or self-care (01) ==
LOC: JD.ED 19:51
DX: R55 Syncope and collapse (principal); R51.9 Headache, unspecified; Z90.49 Acquired absence of other specified parts of digestive tract; Z79.899 Other long term (current) drug therapy; Z88.6 Allergy status to analgesic agent; Z91.030 Bee allergy status; Z88.0 Allergy status to penicillin; Z88.5 Allergy status to narcotic agent; F90.9 Attention-deficit hyperactivity disorder, unspecified type
CPT/HCPCS: 36415; 70450; 80053; 84484; 84703; 85025; 93005; 96361; 96374; 96375; 99284; A9270; J1200; J2765; J3490; J7030; 93010

== ENCOUNTER 2024-11-30 16:21 | Emergency (ER) | payer BC ==
[2024-11-30 17:18] LABS: BASOPHILS PERCENT AUTO 0.2 % (0.0-1.0); EOSINOPHILS PERCENT AUTO 0.2 % (0.0-6.0); HEMATOCRIT 42.6 % (37.0-47.0); HEMOGLOBIN 14.5 gm/dl (12.0-16.0); IMMATURE GRAN ABSOLUTE AUTO 0.02 K/mm3 (0.00-0.05); IMMATURE GRAN PERCENT AUTO 0.2 % (0.0-0.4); LYMPHOCYTES ABSOLUTE AUTO 1.5 K/mm3 (1.0-4.8); LYMPHOCYTES PERCENT AUTO 17.3 % (24.0-44.0); MEAN CORPUSCULAR HEMOGLOBIN 32.4 pg (28.0-32.0); MEAN CORPUSCULAR VOLUME 95.1 fl (83.0-99.0); MEAN PLATELET VOLUME 10.4 fl (9.4-12.3); MONOCYTES ABSOLUTE AUTO 0.3 K/mm3 (0.0-0.8); MONOCYTES PERCENT AUTO 3.2 % (0.0-8.0); NEUTROPHILS ABSOLUTE AUTO 6.7 K/mm3 (1.8-7.7); NEUTROPHILS PERCENT AUTO 78.9 % (41.0-71.0); PLATELET COUNT,PLT 254 K/mm3 (150-400); RED BLOOD CELL COUNT 4.48 M/mm3 (4.10-5.30); WHITE BLOOD CELL COUNT,WBC 8.48 K/mm3 (3.9-11.3)
[2024-11-30 17:46] LABS: A/G RATIO 1.5 (1-2); ALANINE AMINOTRANSFERASE,ALT 19 U/L (14-59); ALBUMIN 4.5 g/dl (3.4-5.0); ALKALINE PHOSPHATASE 67 U/L (46-116); ANION GAP 13.6 (5-15); ASPARTATE AMNIOTRANSFERASE,AST 15 U/L (15-37); BILIRUBIN TOTAL 0.7 mg/dL (0.2-1.0); BLOOD UREA NITROGEN,BUN 7 mg/dL (7-18); BUN/CREATININE RATIO 7.8 (14-18); CALCIUM 9.2 mg/dL (8.5-10.1); CARBON DIOXIDE,CO2 26 mEq/L (21-32); CHLORIDE,CL 106 mEq/L (98-107); CREATININE 0.9 mg/dL (0.55-1.02); EST CRCL DRUG DOSING (CG) 77.01 mL/min; ESTIMATED GFR 84 mL/min (>60); GLUCOSE RANDOM 95 mg/dL (70-99); POTASSIUM,K 3.6 mEq/L (3.5-5.1); PROTEIN TOTAL,TP 7.6 g/dl (6.4-8.2); SODIUM,NA 142 mEq/L (136-145)
[2024-11-30 17:54] LABS: TROPONIN I HIGH SENSITIVITY < 4 pg/mL (<=51)
[2024-11-30] MEDS: Famotidine 20 MG/2 ML SDV IVPUSH ONE (18:07)
[2024-11-30 18:39] VITALS: BP 121/85; PULSE 80
== END 2024-11-30 18:43 | disposition home or self-care (01) ==
LOC: JD.ED 16:21
DX: R07.89 Other chest pain (principal); Z88.1 Allergy status to other antibiotic agents; Z88.8 Allergy status to other drugs, medicaments and biological substances; Z91.030 Bee allergy status; Z88.6 Allergy status to analgesic agent; Z79.899 Other long term (current) drug therapy; Z90.49 Acquired absence of other specified parts of digestive tract
CPT/HCPCS: 36415; 71045; 71045-26; 80053; 83690; 84484; 85025; 86140; 93005; 93010; 96374; 99283; 99285-25